=== PATIENT | female | born 1940 | race Caucasian/White ===

== ENCOUNTER 2024-01-22 19:22 | Emergency (ER) | payer MEDICARE, OTHER, SELFPAY ==
[2024-01-22 19:24] VITALS: BP 165/82
--- NOTE | 2024-01-22 20:40 | ED.GENMED ---
History of Present Illness
General
Chief Complaint: Back Pain
Source: patient
Time Seen by Provider: 01/22/24 20:27
Travel History
Have you had any contact with someone who has COVID-19?: No
Do you have any symptoms of coronavirus? Fever > 100 degrees, chills, cough, shortness of breath, sore throat, loss of taste or smell, muscle aches, or headache?: No
History of Present Illness
History of Present Illness:
83-year-old female presents to the emerged complaint low back pain. Patient states she has had chronic back issues for years. She is required lumbar fusion. She has been going to physical therapy. She began having creased pain after physical
therapy just before Colt's Day. Following point 's Day she went to a feeling and was standing for a long time. Over the following couple days the back pain has increased in intensity. Located in her low back and sacral area
and radiates down to her hips. No numbness or tingling. No bowel or bladder dysfunction. No fever or chills.
Past History
Past History
ED Past Medical History: Asthma, CVA, HTN, NIDDM (Diet controlled), Hypothyroidism and Other (Colitis, diverticulitis, colon polyp); Negative IDDM
ED Past Surgical History: Appendectomy and Gynecological
Social History
Tobacco: Non-smoker
Alcohol: None
Drug: None
Personal:
Living: with family
Employment: Retired
Family History
Family History: Hypertension
Phy Exam
Physical Exam
Physical Exam:
General: Awake, Alert, Oriented X3. No acute distress.
Vitals: Vital hypertension
Head: Atraumatic
Eyes: Pupils equal, EOMI
Throat: Airway intact, no exudates
Neck: Trachea midline
Lungs: Clear and equal b/l
Heart: Regular rate, no murmurs
Abd: Soft, Nontender, No pulsatile mass
Back: Mild tenderness palpation over the lumbar spine and sacroiliac region.
Neuro: No focal weakness
Skin: Warm, dry, no rash
Extremities: pulses equal b/l, no edema
Course
Orders/Labs/Results
Orders:
Orders
01/22/24 20:43
Ketorolac [Toradol] 15 mg IV NOW STA
Lidocaine [Lidocaine 4% Patch] 1 patch TOPICAL NOW STA
01/22/24 21:27
Basic Metabolic Panel Urgent
Complete Blood Count/With Diff Urgent
Abnormal Lab Results
01/22/24
21:27
WBC 15.6 H 10^3/uL
(4.8-10.8)
RBC 4.12 L 10^6/uL
(4.20-5.40)
MCH 32.3 H pg
(27.0-31.0)
Abs Immat Gran (auto) 0.1 H 10^3/uL
(0-0.05)
Absolute Neuts (auto) 8.4 H 10^3/uL
(1.4-6.5)
Absolute Monos (auto) 2.3 H 10^3/uL
(0.1-0.6)
Absolute Eos (auto) 1.4 H 10^3/uL
(0-0.7)
Monocytes % 14.7 H %
(1.7-9.3)
Eosinophils % 8.9 H %
(0-6)
Sodium 133 L mmol/L
(135-145)
Glucose 115 H mg/dl
(70-99)
01/22/24 21:27
01/22/24 21:27
Vital Signs
Initial and Last Documented VS:
Initial Vital Signs
Temp Pulse Resp BP Pulse Ox
98.4 F 61 18 165/82 96
01/22/24 19:24 01/22/24 19:24 01/22/24 19:24 01/22/24 19:24 01/22/24 19:24
Last Documented Vital Signs
Temp Pulse Resp BP Pulse Ox
98.4 F 61 18 165/82 96
01/22/24 19:24 01/22/24 19:24 01/22/24 19:24 01/22/24 19:24 01/22/24 19:24
MDM/Problems Addressed
Differential Diagnosis Includes:
Exacerbation of chronic back pain, spasm,
MDM/Problems Addressed:
Physical exam consistent with low back pain. Will count mildly elevated but labs are otherwise unremarkable. Suspect this is related to pain. No urinary symptoms. Patient feels better after lidocaine patch and Toradol. Stable for discharge home.
Chronic conditions affecting care: HTN and Other (Chronic back pain)
*Pulse Oximetry
Patient hypoxic: no
*Critical Care Note
Total Time (30-74mins, 75-104mins- exclusive of procedures): Not Applicable
ED Attending Note
-
Portions of this chart may have been created with voice recognition software.� Occasional wrong word or��sound alike� substitutions may have occurred due to the inherent limitations of voice recognition software.
Discharge Plan
Departure
Patient Disposition: Home (Routine Discharge)
Date of Disposition: 01/22/24
Time of Disposition: 22:24
Patient with high blood pressure during this ER visit?: Yes
Condition: Good
Discharge Problem:
Low back pain
Instructions: Low Back Pain (DC), BLOOD PRESSURE
Prescriptions:
New
prednisone 20 mg tablet
40 mg PO DAILY Qty: 10 0RF
No Action
albuterol sulfate [ProAir HFA] 8.5 GM HFA aerosol inhaler
8.5 gm IH PRN PRN (Reason: asthma)
Patient Comments:
pt seems unsure of her meds
Advair 250 mcg/50 mcg
1 dose inhalation BID
levothyroxine 100 MCG tablet
100 mcg PO DAILY
lorazepam 1 MG tablet
1 mg PO TID
fluticasone propionate 1 SPRAY spray,suspension
1 spray intranasal DAILY
Vitamin D
1 tab PO DAILY
losartan 25 mg Tablet
25 mg PO DAILY
famotidine 20 mg Tablet
20 mg PO DAILY
omeprazole 20 mg Capsule,Delayed Release(Dr/Ec)
20 mg PO DAILY
metoprolol succinate [Toprol XL] 25 mg tablet extended release 24 hr
25 mg PO DAILY Qty: 30 3RF
methylprednisolone [Medrol (Yaniv)] 4 mg tablets,dose pack
4 mg PO DAILY Qty: 21 0RF
Rx Instructions:
take as directed
Referrals:
Amari Cowan MD [Active] -
Onel Collier MD [Family Provider] -
Activity Restrictions/Additional Instructions:
Call Dr. Cowan's office to make an appointment. They are spray painter. I have sent a prescription for prednisone which she can take 2 pills a day for the next 5 days. This should help with your back pain. The patch we gave you
is a lidocaine patch which you can get [id number] at the pharmacy. 1 brand name is Salonpas. There may be store brands as well.
Interventions
Interventions:
*Risk Screen - Suicide Last Done: 01/22/24 19:24
*General Assessment Last Done: 01/22/24 19:24
*Neglect/Abuse Screening Last Done: 01/22/24 19:24
ED- Fall Risk Assessment Last Done: 01/22/24 20:40
*ED COVID-19 Vaccine History Last Done: 01/22/24 19:29
ED-Musculoskeletal Assessment Last Done: 01/22/24 20:40
Discharge Date and Time
Print Language: LATVIAN
[2024-01-22] MEDS: LIDOCAINE 4% PATCH 1 PATCH TOPICAL (21:29)
[2024-01-22] MEDS: TORADOL 15 MG IV (21:30)
[2024-01-22 21:39] LABS: % Basophils 0.4 % (0-2); % Eosinophils 8.9 % (0-6); % Immature Granulocytes 0.4 % (0-0.5); % Monocytes 14.7 % (1.7-9.3); % Neutrophils 53.6 % (42.2-75.2); Absolute Basophils 0.1 10^3/uL (0-0.2); Absolute Eosinophils 1.4 10^3/uL (0-0.7); Absolute Immature Granulocytes 0.1 10^3/uL (0-0.05); Absolute Lymphocytes 3.4 10^3/uL (1.2-3.4); Absolute Monocytes 2.3 10^3/uL (0.1-0.6); Absolute Neutrophils 8.4 10^3/uL (1.4-6.5); Hematocrit 38.2 % (37.0-47.0); Hemoglobin 13.3 g/dL (12.0-16.0); Mean Corp Hgb Conc. 34.8 g/dL (33.0-37.0); Mean Corpuscular Hgb 32.3 pg (27.0-31.0); Mean Corpuscular Volume 92.7 fL (81.0-99.0); Mean Platelet Volume 9.1 fL (7.4-10.4); Nucleated Red Blood Cells % 0 %; Platelet Count 214 10^3/uL (130-400); Red Blood Cell Count 4.12 10^6/uL (4.20-5.40); Red Cell Dist. Width 12.6 % (11.5-14.5); White Blood Cell Count 15.6 10^3/uL (4.8-10.8)
[2024-01-22 21:57] LABS: Blood Urea Nitrogen 16 mg/dl (7-17); Calcium 9.4 mg/dl (8.4-10.2); Carbon Dioxide 28 mmol/L (22-30); Chloride 98 mmol/L (98-107); Glucose 115 mg/dl (70-99); Sodium 133 mmol/L (135-145); eGFR > 60.00
== END 2024-01-22 22:45 | disposition home or self-care (01) ==
LOC: EMR 19:22
PROVIDERS: EMERGENCY PHYSICIAN Emergency Medicine; FAMILY PHYSICIAN Internal Medicine Geriatric Medicine
DX: M54.50 Low back pain, unspecified (principal); J45.909 Unspecified asthma, uncomplicated; I10 Essential (primary) hypertension; E11.9 Type 2 diabetes mellitus without complications; E03.9 Hypothyroidism, unspecified; G89.29 Other chronic pain; Z82.49 Family history of ischemic heart disease and other diseases of the circulatory system; Z86.73 Personal history of transient ischemic attack (TIA), and cerebral infarction without residual deficits; Z87.19 Personal history of other diseases of the digestive system; Z90.49 Acquired absence of other specified parts of digestive tract
CPT/HCPCS: 99283; 96374; 80048; 85025

== ENCOUNTER 2024-01-30 18:27 | Emergency (ER) | payer MEDICARE, OTHER, SELFPAY ==
[2024-01-30 18:35] VITALS: BP 133/74
[2024-01-30 19:18] VITALS: BP 130/59
--- NOTE | 2024-01-30 19:47 | ED.GENMED ---
History of Present Illness
General
Chief Complaint: Back Pain
Source: patient
Exam Limitations: none
Time Seen by Provider: 01/30/24 19:32
Travel History
Have you had any contact with someone who has COVID-19?: No
Do you have any symptoms of coronavirus? Fever > 100 degrees, chills, cough, shortness of breath, sore throat, loss of taste or smell, muscle aches, or headache?: No
History of Present Illness
History of Present Illness:
This is a 83 year old female that comes in with c/o low back pain. States that she was here Saturday a week ago with the same pain. States that she was told to take Prednisone 40mg daily for 5 days and Salonpas pain patch and nothing is helping.
States that last week she was doing PT and she feels like she pulled a muscle. States that she was told to see pain management but she couldn't get an appointment until March 05. States that she takes Gabapentin and aleve and nothing is helping.
States that she sometimes gets nauseated with the pain and is occasionally dizzy. Denies any fever, chills, chest pain, SOB, abd pain, vomiting, diarrhea, headache, urinary burning.
Past History
Past History
ED Past Medical History: Asthma, CVA (Right eye involement), HTN, NIDDM (Diet controlled), Hypothyroidism, Psychiatric (Anxiety) and Other (Colitis, diverticulitis, colon polyp, back pain, PNA, C-diff); Negative IDDM
ED Past Surgical History: Appendectomy, Cholecystectomy, Gynecological (Hysterectomy, Oophorectomy, Tubal), Orthopedic (Back fusion, ) and Tonsilectomy
Social History
Tobacco: Non-smoker
Alcohol: None
Drug: None
Personal:
Living: with family
Employment: Retired
Family History
Family History: Hypertension
Review of Systems
Review of Systems
All Other Systems: ROS reviewed and negative except as documented in HPI and ROS
Constitutional: Reports no symptoms; Denies fever or chills
EENT: Reports no symptoms
Respiratory: Reports no symptoms; Denies cough or trouble breathing
Cardiac: Reports no symptoms; Denies chest pain
ABD/GI: Reports nausea; Denies abdominal pain, vomiting or diarrhea
: Reports no symptoms; Denies dysuria, frequency or urgency
Musculoskeletal: Reports back pain (Low back pain)
Skin: Reports no symptoms
Neurological: Reports dizzy (occasional); Denies headache
Psychiatric: Reports no symptoms
Phy Exam
General Physical Exam
General Presentation: no apparent distress
General age: appears stated age
General Skin: warm and dry
General Habitus: elderly
General Mental: alert
General Hydration: dry mucous membranes
ENT Exam
ENT Exam: TM's normal, pharynx normal and neck supple
Eye Exam
Eye Exam: EOMI
Cardiovascular Exam
Cardiovascular Exam: regular rate/rhythm, no edema and normal peripheral pulses
Pulmonary Exam
Pulmonary Exam: lungs clear, no respiratory distress, no rales, chest non tender, no crackles, no rhonchi, no wheezing and no cough
Gastrointestinal Exam
Gastrointestinal Exam: normal bowel sounds, non tender, soft, no organomegaly, no pulsatile mass and non distended
Musculoskeletal Exam
Musculoskeletal Exam: full ROM, no edema and other (Negative for pain with straight leg raise. Discomfort when going up on her toes and turning sided to side. Standing she has pain in the left leg,. Able to bend forward 35 degree's)
Skin Exam
Skin Exam: normal color, warm/dry, no rash and no petechia
Psychiatric Exam
Psychiatric Exam: normal mood/affect
Course
Orders/Labs/Results
Orders:
Orders
01/30/24 19:46
CT Lumbar Spine W/o Iv Contras Urgent
Comment:
Reason For Exam: Low back pain
Acetaminophen [Tylenol] 1,000 mg PO NOW STA
Oxycodone [Roxicodone] 5 mg PO NOW STA
01/30/24 20:11
Complete Blood Count/With Diff Urgent
Comprehensive Metabolic Panel Urgent
Abnormal Lab Results
01/30/24
20:11
WBC 20.6 H 10^3/uL
(4.8-10.8)
MCH 32.3 H pg
(27.0-31.0)
Abs Immat Gran (auto) 0.2 H 10^3/uL
(0-0.05)
Absolute Neuts (auto) 11.6 H 10^3/uL
(1.4-6.5)
Absolute Lymphs (auto) 4.2 H 10^3/uL
(1.2-3.4)
Absolute Monos (auto) 3.2 H 10^3/uL
(0.1-0.6)
Absolute Eos (auto) 1.4 H 10^3/uL
(0-0.7)
Immature Gran % 1.0 H %
(0-0.5)
Lymphocytes % 20.3 L %
(20.5-51.1)
Monocytes % 15.4 H %
(1.7-9.3)
Eosinophils % 6.7 H %
(0-6)
Sodium 130 L mmol/L
(135-145)
BUN 26 H mg/dl
(7-17)
Glucose 176 H mg/dl
(70-99)
Total Protein 6.2 L g/dl
(6.3-8.2)
01/30/24 20:11
01/30/24 20:11
Leukocytosis, (recently on Steroids), Sodium slighlty low. Dehdyration. Glucose nonfasting. Total protein slightly low.
Vital Signs
Initial and Last Documented VS:
Initial Vital Signs
Temp Pulse Resp BP Pulse Ox
98.1 F 96 18 133/74 96
01/30/24 18:35 01/30/24 18:35 01/30/24 18:35 01/30/24 18:35 01/30/24 18:35
Last Documented Vital Signs
Temp Pulse Resp BP Pulse Ox
98.1 F 96 18 131/83 95
01/30/24 18:35 01/30/24 18:35 01/30/24 18:35 01/30/24 22:00 01/30/24 22:15
MDM/Problems Addressed
Differential Diagnosis Includes:
Degenerative change back, Arthritis,
MDM/Problems Addressed:
This is a 83 year old female that comes in with c/o low back pain. States that she was here a week ago on Saturday and is returning today with the same pain. states that she is in pain all the time. States that she took the steroids and
used the Salonpas but nothing is helping. States that she can't get into pain management until March 05.
Will check labs, and get CT of the lumbar spine. Will medicate for pain.
back into see patient. Patient states that her pain is much better. Explained that there is a fracture of L2. This is causing her pain. Will have patient follow up wtih the engineering specialist technician. Will have patient use Tylenol arthritis and Oxycodone 5mg
BID prn. Patient can use heat or ice if this makes her back feel better. Use her walker at home. Return with any concerns.
Chronic conditions affecting care:
Chronic back pain, prior surgery
Acute Exacerbation and/or Progression of Chronic Illness:
Chronic back pain
*Radiology
Radiology exam reviewed: radiology read reviewed (CT- Fracture involving the inferior endplate of L2 with approximately 10% diffuse loss of height. Minimal retropulsion of bony fragment from the posterior and inferior margin of L2, mildly extending
into the anterior spinal canal,)
*Pulse Oximetry
Patient hypoxic: no
*EKG
Interpreted by ED Provider?: NA
Rate: EKG- N/A
*Rehabilitation Worker Interpretation
Rate: Rehabilitation Worker- N/A
*Critical Care Note
Total Time (30-74mins, 75-104mins- exclusive of procedures): Not Applicable
ED Attending Note
-
Portions of this chart may have been created with voice recognition software.� Occasional wrong word or��sound alike� substitutions may have occurred due to the inherent limitations of voice recognition software.
Discharge Plan
Departure
Patient Disposition: Home (Routine Discharge)
Date of Disposition: 01/30/24
Time of Disposition: 23:08
Patient with high blood pressure during this ER visit?: Yes
Condition: Good
Covid-19: Not Applicable
Discharge Problem:
Fracture of lumbar spine
Instructions: Vertebral Compression Fracture (DC), BLOOD PRESSURE
Prescriptions:
New
oxycodone 5 mg tablet
5 mg PO Q8H PRN (Reason: Pain) Qty: 15 0RF
No Action
lorazepam 1 MG tablet
1 mg PO TID
Patient Comments:
01/30/2024: last filled 12/23/23, 90 tabs for 30 days from [facility]
fluticasone propionate 1 SPRAY spray,suspension
1 spray intranasal DAILY
cholecalciferol (vitamin D3) [Vitamin D3] 25 mcg (1,000 unit) Tablet
25 mcg PO DAILY
metoprolol succinate [Toprol XL] 25 mg tablet extended release 24 hr
25 mg PO DAILY Qty: 30 3RF
losartan 50 mg tablet
50 mg PO DAILY
ipratropium-albuterol 0.5 mg-3 mg(2.5 mg base)/3 mL solution for nebulization
3 ml INHALATION R Q4HPRN PRN (Reason: sob/wheezing)
ibuprofen 200 mg Capsule
200 mg PO Q6H PRN (Reason: mild pain)
guaifenesin [Robitussin] 100 mg/5 mL Liquid
200 mg PO Q4H PRN (Reason: cough)
levothyroxine 88 mcg tablet
88 mcg PO DAILY
gabapentin 300 mg capsule
300 mg PO BID
budesonide 0.5 mg/2 mL suspension for nebulization
0.5 mg inhalation R Q6HPRN PRN (Reason: sob/wheezing)
metformin 500 mg tablet extended release 24 hr
500 mg PO QPM
rosuvastatin 10 mg tablet
10 mg PO HS
duloxetine 30 mg capsule,delayed release(DR/EC)
30 mg PO DAILY
Referrals:
Gavin Salguero MD [Active] - Call in 1-3 days for appt
Onel Collier MD [Family Provider] -
Activity Restrictions/Additional Instructions:
As discussed, your blood work shows that your WBC are elevated. This is most likely due to the steroids that you have been taking. Your Sodium is slightly low. Please limit your water intake to 6-8oz glasses daily. Try eating some canned soup or
boxed food that is higher in sodium. Your CT shows that you have a fracture of L2. This is the cause of your back pain. You can use Tylenol arthritis as directed on the label and a prescription for a Narcotic pain medication has been sent to your
pharmacy. This will make you tired. Please use your walker at all times. Follow up with the family doctor and the display specialist. IF YOU HAVE INCREASED OR CHANGING PAIN, OR YOU HAVE ANY OTHER CONCERNS PLEASE RETURN TO THE EMERGENCY ROOM.
Interventions
Interventions:
*Risk Screen - Suicide Last Done: 01/30/24 18:35
*General Assessment Last Done: 01/30/24 18:35
*Neglect/Abuse Screening Last Done: 01/30/24 18:35
ED- Fall Risk Assessment Last Done: 01/30/24 19:45
*ED COVID-19 Vaccine History Last Done: 01/30/24 18:35
ED-Musculoskeletal Assessment Last Done: 01/30/24 19:45
Discharge Date and Time
Print Language: CONGOLESE
[2024-01-30 20:00] VITALS: BP 123/71
[2024-01-30] MEDS: TYLENOL 1000 MG PO (20:00)
[2024-01-30] MEDS: ROXICODONE 5 MG PO (20:00)
[2024-01-30 20:17] LABS: % Basophils 0.2 % (0-2); % Eosinophils 6.7 % (0-6); % Lymphocytes 20.3 % (20.5-51.1); % Monocytes 15.4 % (1.7-9.3); % Neutrophils 56.4 % (42.2-75.2); Absolute Basophils 0.1 10^3/uL (0-0.2); Absolute Eosinophils 1.4 10^3/uL (0-0.7); Absolute Immature Granulocytes 0.2 10^3/uL (0-0.05); Absolute Lymphocytes 4.2 10^3/uL (1.2-3.4); Absolute Monocytes 3.2 10^3/uL (0.1-0.6); Absolute Neutrophils 11.6 10^3/uL (1.4-6.5); Hematocrit 42.4 % (37.0-47.0); Hemoglobin 14.7 g/dL (12.0-16.0); Mean Corp Hgb Conc. 34.7 g/dL (33.0-37.0); Mean Corpuscular Hgb 32.3 pg (27.0-31.0); Mean Corpuscular Volume 93.2 fL (81.0-99.0); Nucleated Red Blood Cells % 0 %; Platelet Count 279 10^3/uL (130-400); Red Blood Cell Count 4.55 10^6/uL (4.20-5.40); Red Cell Dist. Width 12.6 % (11.5-14.5); White Blood Cell Count 20.6 10^3/uL (4.8-10.8)
[2024-01-30 20:41] LABS: ALT (SGPT) 12 U/L (0-35); AST (SGOT) 25 U/L (14-36); Albumin 3.5 g/dl (3.5-5.0); Alkaline Phosphatase 79 U/L (38-126); Blood Urea Nitrogen 26 mg/dl (7-17); Calcium 9.1 mg/dl (8.4-10.2); Carbon Dioxide 27 mmol/L (22-30); Chloride 99 mmol/L (98-107); Glucose 176 mg/dl (70-99); Potassium 4.8 mmol/L (3.5-5.1); Sodium 130 mmol/L (135-145); Total Bilirubin 0.4 mg/dl (0.2-1.3); Total Protein 6.2 g/dl (6.3-8.2); eGFR > 60.00
[2024-01-30 21:02] VITALS: BP 139/70
[2024-01-30 22:00] VITALS: BP 131/83
[2024-01-30 23:00] VITALS: BP 142/72
== END 2024-01-30 23:20 | disposition home or self-care (01) ==
LOC: EMR 18:27
PROVIDERS: Clinical Nurse Specialist Family Health; EMERGENCY PHYSICIAN Emergency Medicine; FAMILY PHYSICIAN Internal Medicine Geriatric Medicine
DX: S32.029A Unspecified fracture of second lumbar vertebra, initial encounter for closed fracture (principal); X58.XXXA Exposure to other specified factors, initial encounter; I10 Essential (primary) hypertension
CPT/HCPCS: 99284; 72131; 80053; 85025

== ENCOUNTER → 2024-02-19 15:02 | Outpatient (REF) | payer MEDICARE, OTHER, SELFPAY | LOC: MRI 3T 15:02 | PROVIDERS: ATTENDING PHYSICIAN Student in an Organized Health Care Education/Training Program; FAMILY PHYSICIAN Internal Medicine Geriatric Medicine | DX: S32.020A Wedge compression fracture of second lumbar vertebra, initial encounter for closed fracture (principal); M54.16 Radiculopathy, lumbar region | CPT/HCPCS: 72148 ==

== ENCOUNTER → 2024-03-20 08:56 | Outpatient (REF) | payer MEDICARE, OTHER, SELFPAY | LOC: RAD 08:56 | PROVIDERS: ATTENDING PHYSICIAN Internal Medicine Geriatric Medicine | DX: E11.40 Type 2 diabetes mellitus with diabetic neuropathy, unspecified (principal); E03.9 Hypothyroidism, unspecified; I10 Essential (primary) hypertension; E78.2 Mixed hyperlipidemia; J42 Unspecified chronic bronchitis; J44.9 Chronic obstructive pulmonary disease, unspecified; F41.9 Anxiety disorder, unspecified; E55.9 Vitamin D deficiency, unspecified; G44.209 Tension-type headache, unspecified, not intractable; R00.2 Palpitations; Z91.81 History of falling; Z13.89 Encounter for screening for other disorder; M47.817 Spondylosis without myelopathy or radiculopathy, lumbosacral region; S32.020A Wedge compression fracture of second lumbar vertebra, initial encounter for closed fracture | CPT/HCPCS: 77080 ==

== ENCOUNTER 2024-03-31 17:10 | Emergency (ER) | payer MEDICARE, OTHER, SELFPAY ==
[2024-03-31 17:25] VITALS: BP 162/98
--- NOTE | 2024-03-31 22:20 | ED.GENMED ---
History of Present Illness
<BOB Castillo - Last Filed: 04/01/24 01:43>
General
Chief Complaint: Musculo-Skeletal Complaint
Source: patient, records and spouse
Time Seen by Provider: 03/31/24 22:03
Travel History
Have you had any contact with someone who has COVID-19?: No
Do you have any symptoms of coronavirus? Fever > 100 degrees, chills, cough, shortness of breath, sore throat, loss of taste or smell, muscle aches, or headache?: No
History of Present Illness
History of Present Illness:
83 year old female with hx of chronic lower back pain, HLD, s/p spinal fusion who presents with mid-lower back pain that worsened in the last 24 hours. Pt has hx of chronic lower back pain and is on oxycodone 5 mg PRN. She was seen here on 01/30/24
for similar symptoms. At the time, CT lumbar spine showed fracture of L2. She has had intermittent lower back pain since then, which is normally controlled with oxycodone 5 mg. However, in the last 24 hours she has had worsening sharp lower back
pain, 10/10, nonradiating. States she is unable to sleep which is why she came to the ER. She also complains of 10/10, sharp, nonradiating L hip pain that worsened in the last 24 hours. She is normally ambulatory with a walker. She has associated
nausea. She reports 1 episode of diarrhea last night. Denies fevers/chills, vomiting, constipation, dysuria, urinary incontinence, numbness or tingling to extremities. Denies any falls or trauma to the back. Last dose of oxycodone 5 mg was at 1300
today with minimal relief of her pain. She follows with [facility] and has an appointment on 04/09/24 for epidural injection.
<Abraham Olsen DO - Last Filed: 04/01/24 01:20>
General
Nursing documentation reviewed up to this point in time: agreed with
Past History
<BOB Castillo - Last Filed: 04/01/24 01:43>
Past History
ED Past Medical History: Asthma, CVA (Right eye involement), HTN, NIDDM (Diet controlled), Hypothyroidism, Psychiatric (Anxiety) and Other (Colitis, diverticulitis, colon polyp, back pain, PNA, C-diff); Negative IDDM
ED Past Surgical History: Appendectomy, Cholecystectomy, Gynecological (Hysterectomy, Oophorectomy, Tubal), Orthopedic (Back fusion, ) and Tonsilectomy
Social History
Tobacco: Non-smoker
Alcohol: None
Drug: None
Personal:
Living: with family
Employment: Retired
Family History
Family History: Hypertension
Review of Systems
<BOB Castillo - Last Filed: 04/01/24 01:43>
Review of Systems
Allergies reviewed?: Yes
All Other Systems: ROS reviewed and negative except as documented in HPI and ROS
Constitutional: Reports no symptoms
EENT: Reports no symptoms
Respiratory: Reports no symptoms
Cardiac: Reports no symptoms
ABD/GI: Reports nausea
: Reports no symptoms
Musculoskeletal: Reports joint pain, muscle pain and back pain
Skin: Reports no symptoms
Neurological: Reports no symptoms
Endocrine: Reports no symptoms
Hematologic/Lymphatic: Reports no symptoms
Psychiatric: Reports no symptoms
Phy Exam
<BOB Castillo Last Filed: 04/01/24 01:43>
General Physical Exam
General Presentation: other (pt in moderate distress due to pain, she is lying in bed in position)
General age: appears stated age
General Skin: warm and dry
General Habitus: normal and elderly
General Mental: alert
General Hydration: appears well hydrated
Cardiovascular Exam
Cardiovascular Exam: regular rate/rhythm, no edema, no gallop, no murmur and normal peripheral pulses
Pulmonary Exam
Pulmonary Exam: lungs clear, no respiratory distress, no rales, no crackles, no rhonchi, no wheezing and no cough
Neurological Exam
Neurological Exam: alert, oriented x3, no motor deficits and no sensory deficits
Musculoskeletal Exam
Musculoskeletal Exam: back pain and back tenderness (midline, L2)
Skin Exam
Skin Exam: normal color and warm/dry
Psychiatric Exam
Psychiatric Exam: normal mood/affect
Course
<BOB Castillo - Last Filed: 04/01/24 01:43>
Orders/Labs/Results
Orders:
Orders
03/31/24 17:30
Hip, Left 2-3 Views [CR Hip - LT w/wo Pel 2-3 Vw*] Urgent
Comment:
Reason For Exam: pain, denies trauma
Include a pelvis x-ray?: Yes
Lumbar Spine Complete, 4 View [CR Lumbar Spine Comp Min 4 Vw*] Urgent
Comment:
Reason For Exam: lower back pain, no trauma.
03/31/24 22:55
Tranexamic Acid 1,000 mg INH NOW STA
03/31/24 23:12
HYDROmorphone [Dilaudid] 0.5 mg IM NOW STA
Vital Signs
Initial and Last Documented VS:
Initial Vital Signs
Temp Pulse Resp BP Pulse Ox
98.2 F 100 18 162/98 96
03/31/24 17:25 03/31/24 17:25 03/31/24 17:25 03/31/24 17:25 03/31/24 17:25
Last Documented Vital Signs
Temp Pulse Resp BP Pulse Ox
98.2 F 84 16 149/79 97
03/31/24 17:25 04/01/24 00:30 04/01/24 00:30 04/01/24 00:30 04/01/24 00:30
<Abraham Olsen DO - Last Filed: 04/01/24 01:20>
Orders/Labs/Results
Orders:
Orders
03/31/24 17:30
Hip, Left 2-3 Views [CR Hip - LT w/wo Pel 2-3 Vw*] Urgent
Comment:
Reason For Exam: pain, denies trauma
Include a pelvis x-ray?: Yes
Lumbar Spine Complete, 4 View [CR Lumbar Spine Comp Min 4 Vw*] Urgent
Comment:
Reason For Exam: lower back pain, no trauma.
03/31/24 22:55
Tranexamic Acid 1,000 mg INH NOW STA
03/31/24 23:12
HYDROmorphone [Dilaudid] 0.5 mg IM NOW STA
Vital Signs
Initial and Last Documented VS:
Initial Vital Signs
Temp Pulse Resp BP Pulse Ox
98.2 F 100 18 162/98 96
03/31/24 17:25 03/31/24 17:25 03/31/24 17:25 03/31/24 17:25 03/31/24 17:25
Last Documented Vital Signs
Temp Pulse Resp BP Pulse Ox
98.2 F 84 16 149/79 97
03/31/24 17:25 04/01/24 00:30 04/01/24 00:30 04/01/24 00:30 04/01/24 00:30
<BOB Castillo - Last Filed: 04/01/24 01:43>
MDM/Problems Addressed
Differential Diagnosis Includes:
compression fracture, osteoarthritis, sciatica
MDM/Problems Addressed:
83 year old female who presents with lower back pain that worsened in the last 24 hours.
Chronic conditions affecting care: HTN, Asthma, Previous abdomnial surgery and Other (spinal fusion)
<BOB Castillo - Last Filed: 04/01/24 01:43>
*Critical Care Note
Total Time (30-74mins, 75-104mins- exclusive of procedures): Not Applicable
<BOB Castillo - Last Filed: 04/01/24 01:43>
Update Note
Update Note:
03/31/24 2328: Pt reevaluated. Pt lying in position with icepack behind her neck. Pt just received dose of dilaudid. States she is still in pain.
04/01/24 0052: Pt sleeping in bed. States her pain has improved.
ED Attending Note
<BOB Castillo - Last Filed: 04/01/24 01:43>
-
Portions of this chart may have been created with voice recognition software.� Occasional wrong word or��sound alike� substitutions may have occurred due to the inherent limitations of voice recognition software.
<Abraham Olsen DO - Last Filed: 04/01/24 01:20>
ED Attending Note
Patient seen and examined by attending physician: Yes
I performed the substantive portion of visit, reviewed & personally made and approve the management plan that is documented in note by myself or MAXI.: Yes
ED Attending Note:
This a pleasant 83-year-old female who presents with acute on chronic low back pain. Patient was seen several months ago and diagnosed with a fracture in her back. She has been in rehab and following up with [facility]. She has been
taking oral pain medications but feels that they have not been working very well. She is due for an epidural injection next week. She does see pain management. Denies bowel or bladder retention or incontinence. Denies fever, chills, nausea or
vomiting.
Vital signs are stable. Patient not hypoxic
Nursing note reviewed. I agree with nursing documentation up to this point in time.
Home Meds and allergies reviewed.
NUMBER AND COMPLEXITY OF PROBLEMS ADDRESSED AT THE ENCOUNTER
� Chronic conditions affecting care: Chronic low back pain. Spinal fusion, hyperlipidemia
� Acute Exacerbation and/or Progression of Chronic Illness: Low back pain
� Differential Diagnosis includes: Worsening low back pain. New injury to back
AMOUNT AND/OR COMPLEXITY OF DATA TO BE REVIEWED AND ANALYZED
I performed an independent evaluation of the following and my interpretation is:
EKG:
CT:
X-rays:
Ultrasound:
Laboratory Studies:
Other:
Review of other/old records:
IMPRESSION:
1. ACUTE INFERIOR ENDPLATE FRACTURE of L2. Large diffuse disc bulge at L2/L3 causing moderate central canal stenosis and moderate bilateral neural foraminal narrowing.
2. 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 Moderate bilateral neural foraminal narrowing at L4/L5.
3. Severe discogenic degenerative disease at L4/L5 and L5/S1.
4. 5.9 mm grade 1 anterolisthesis of L3 on L4 and previous circumferential fusion at the L3/L4 level.
5. 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
Clinical information was obtained by an independent historian: , who is present at the bedside.
Prescriptions/Medications Considered but not given:
Further testing considered but not performed:
RISK OF COMPLICATIONS AND/OR MORBIDITY OR MORTALITY OF PATIENT MANAGEMENT
Social determinants of health affecting care: Good Social Support, good follow-up, present at the bedside
Discussion with other providers:
Escalation of care including admission/observation vs risk of discharge considered:
CRITICAL CARE NOTE:
Total Time (exclusive of procedures):
Update:
Discharge Plan
Departure
Patient Disposition: Home (Routine Discharge)
Date of Disposition: 04/01/24
Time of Disposition: 01:18
Patient with high blood pressure during this ER visit?: Yes
Discharge Problem:
Acute exacerbation of chronic low back pain
Instructions: Muscle and Bone Pain (DC), Low Back Pain ED
Prescriptions:
No Action
lorazepam 1 MG tablet
1 mg PO TID
Patient Comments:
01/30/2024: last filled 12/23/23, 90 tabs for 30 days from [facility]
fluticasone propionate 1 SPRAY spray,suspension
1 spray intranasal DAILY
cholecalciferol (vitamin D3) [Vitamin D3] 25 mcg (1,000 unit) Tablet
25 mcg PO DAILY
metoprolol succinate [Toprol XL] 25 mg tablet extended release 24 hr
25 mg PO DAILY Qty: 30 3RF
losartan 50 mg tablet
50 mg PO DAILY
ipratropium-albuterol 0.5 mg-3 mg(2.5 mg base)/3 mL solution for nebulization
3 ml INHALATION R Q4HPRN PRN (Reason: sob/wheezing)
ibuprofen 200 mg Capsule
200 mg PO Q6H PRN (Reason: mild pain)
guaifenesin [Robitussin] 100 mg/5 mL Liquid
200 mg PO Q4H PRN (Reason: cough)
levothyroxine 88 mcg tablet
88 mcg PO DAILY
gabapentin 300 mg capsule
300 mg PO BID
budesonide 0.5 mg/2 mL suspension for nebulization
0.5 mg inhalation R Q6HPRN PRN (Reason: sob/wheezing)
metformin 500 mg tablet extended release 24 hr
500 mg PO QPM
rosuvastatin 10 mg tablet
10 mg PO HS
duloxetine 30 mg capsule,delayed release(DR/EC)
30 mg PO DAILY
oxycodone 5 mg tablet
5 mg PO Q8H PRN (Reason: Pain) Qty: 15 0RF
Referrals:
Onel Collier MD [Family Provider] -
Activity Restrictions/Additional Instructions:
Please follow-up with your orthopedic doctor as previously scheduled. Continue to take your oxycodone as directed.
It was a pleasure meeting you and taking part in your care. We hope for your continued healing and wellness.
Please read discharge instructions in their entirety. However, they are for general education and may not describe your exact diagnosis at discharge. Information on your ER visit and medical conditions were discussed with you along with appropriate
follow up information...
If indicated, please take your medications as instructed and indicated on discharge paperwork.
Please schedule a follow up appointment as directed. Call to schedule an appointment
Please return to the emergency department with ANY change in, persisting, or worsening of symptoms. If any of your symptoms do not improve, or persist, or become more severe within 6-12 hours, please return to the emergency department for further
care.
Please return to the emergency department if you develop a headache, neck pain/stiffness, fever greater than 100.4F, chest pain, shortness of breath, persistent nausea, vomiting, slurred speech, difficulty walking, numbness/tingling, weakness, signs
of infection or any other symptoms that are worrisome to you.
If you have any questions or concerns please do not hesitate to call the Hospital at or E-mail me directly at [email or web address]
Interventions
Interventions:
*Nursing Disposition Last Done: 04/01/24 01:36
ED-Musculoskeletal Assessment Last Done: 04/01/24 00:05
Discharge Date and Time
Discharge Date/Time: 04/01/24 01:37
Print Language: COLOMBIAN
[2024-03-31] MEDS: DILAUDID 0.5 MG IM (23:22)
[2024-04-01 00:30] VITALS: BP 149/79
== END 2024-04-01 01:37 | disposition home or self-care (01) ==
LOC: EMR 17:10
PROVIDERS: EMERGENCY PHYSICIAN Student in an Organized Health Care Education/Training Program; FAMILY PHYSICIAN Internal Medicine Geriatric Medicine
DX: M54.50 Low back pain, unspecified (principal); G89.29 Other chronic pain; I10 Essential (primary) hypertension; E11.9 Type 2 diabetes mellitus without complications; E03.9 Hypothyroidism, unspecified
CPT/HCPCS: 99283; 96372; 72110; 73502

== ENCOUNTER → 2024-04-21 17:31 | Outpatient (REF) | payer MEDICARE, OTHER, SELFPAY | LOC: MRI 17:31 | PROVIDERS: ATTENDING PHYSICIAN Internal Medicine; FAMILY PHYSICIAN Internal Medicine Geriatric Medicine | DX: M54.59 Other low back pain (principal); M48.062 Spinal stenosis, lumbar region with neurogenic claudication; M47.817 Spondylosis without myelopathy or radiculopathy, lumbosacral region; M54.16 Radiculopathy, lumbar region; M51.36 Other intervertebral disc degeneration, lumbar region | CPT/HCPCS: 72195 ==

== ENCOUNTER → 2024-11-17 10:46 | Outpatient (REF) | payer MEDICARE, OTHER, SELFPAY | LOC: HWRAD 10:46 | PROVIDERS: ATTENDING PHYSICIAN Specialist; FAMILY PHYSICIAN Internal Medicine Geriatric Medicine | DX: G91.2 (Idiopathic) normal pressure hydrocephalus (principal) | CPT/HCPCS: 70450 ==

== ENCOUNTER 2025-08-07 14:40 | Inpatient (IN) | payer MEDICARE, OTHER, SELFPAY ==
[2025-08-05 23:27] VITALS: BMI 25.8
[2025-08-05 23:49] LABS: Hematocrit 40.5 % (37.0-47.0); Hemoglobin 13.9 g/dL (12.0-16.0); Mean Corp Hgb Conc. 34.3 g/dL (33.0-37.0); Mean Corpuscular Volume 96.0 fL (81.0-99.0); Nucleated Red Blood Cells % 0 %; Platelet Count 206 10^3/uL (130-400); Red Cell Dist. Width 14.1 % (11.5-14.5)
[2025-08-06] VITALS (10 sets, daily range): BP systolic 107–173; BP diastolic 69–99; PULSE 78–79; O2SAT 96–97; BMI 23.8
[2025-08-06 00:04] LABS: ALT (SGPT) 12 U/L (0-35); AST (SGOT) 20 U/L (14-36); Albumin 4.0 g/dl (3.5-5.0); Alkaline Phosphatase 62 U/L (38-126); Blood Urea Nitrogen 13 mg/dl (7-17); Calcium 9.3 mg/dl (8.4-10.2); Carbon Dioxide 30 mmol/L (22-30); Chloride 102 mmol/L (98-107); Estimated Creatinine Clearance 34 ml/min; Glucose 145 mg/dl (70-99); Potassium 4.4 mmol/L (3.5-5.1); Sodium 137 mmol/L (135-145); Total Protein 7.0 g/dl (6.3-8.2); eGFR > 60.00
[2025-08-06 00:05] LABS: INR 1.01; PT 13.8 Sec (11.4-14.6)
[2025-08-06 00:06] LABS: APTT 33.7 Sec (23.4-35.0)
--- NOTE | 2025-08-06 01:00 | ED.CVA ---
History of Present Illness
General
Chief Complaint: CVA/TIA Symptoms
Source: patient
Exam Limitations: none
Time Seen by Provider: 08/05/25 23:19
Nursing documentation reviewed up to this point in time: agreed with
Onset of Stroke Symptoms
Onset of symptoms known: No
Time pt last seen normal is known: No
History of Present Illness
History of Present Illness:
Note:
CHIEF COMPLAINT(S)
Right-sided weakness and difficulty with speech.
HISTORY OF PRESENT ILLNESS
The patient is an 85-year-old female presenting with a right-sided deficit that was observed on arrival. She did not have a preceding history of such issues, except for a cerebrovascular accident (CVA) that occurred approximately 10 years ago. The
patients current symptoms include weakness on her right side and expressive aphasia. Her previous diagnosis of CVA may be relevant as it was reported to have affected the right side, though she states she has been able to manage with the limitations
on her own and is on public support. Upon arrival, it was noted that she had a significant deficit on her right side and difficulty in communication suggesting an acute change.
MEDICATIONS
- Baclofen, current dosage unknown
- Gabapentin, current dosage unknown
PHYSICAL EXAM
General: Alert with some distress due to communication difficulties.
Neurological: Right-sided weakness observed. Expressive aphasia present.
PROBLEM LIST
Acute:
- Right-sided weakness
- Expressive aphasia
Chronic:
- History of cerebrovascular accident (CVA) 10 years ago
DIFFERENTIAL DIAGNOSIS
The Differential Diagnosis includes, in no particular order and is not limited to:
- Acute Stroke
- Transient Ischemic Attack (TIA)
- Seizure with postictal state
- Brain Tumor
- Subdural Hematoma
- Metabolic or Electrolyte Imbalance
- Migrainous Disorder
- Infection leading to neurological deficit (i.e., encephalitis)
- Medication Side Effect
- Hypoglycemia
CARE-UPDATE
08/05/25 - 23:30
Patient demonstrated difficulties naming objects and reading sentences but was able to perform physical tasks such as lifting arms and legs. Sensation appeared symmetrical with eyes closed. A CT scan and blood work are planned for further
evaluation. The EKG indicated a two-paced rhythm with normal intervals and axis. The patient has yet to receive the COVID booster, scheduled for tomorrow but currently undecided about proceeding with it.
CARE-UPDATE
08/06/25 - 01:03
CT scans are negative, and the patient is not a candidate for tPA as her symptoms have resolved. The patients neurological status has returned to 100% baseline at this time.
Disposition:
SUMMARY OF ENCOUNTER
An 85-year-old female presented to the emergency department with acute onset of expressive aphasia and right-sided weakness. These symptoms resolved before her arrival. Her National Institutes of Health Stroke Scale (NIHSS) score is zero, indicating
no ongoing neurological deficits. No tissue plasminogen activator (tPA) was administered due to the complete resolution of symptoms.
DISPOSITION
Patient to be admitted to the hospital service.
ASSESSMENT
The patients presentation is suggestive of a transient ischemic attack (TIA) versus cerebrovascular accident (CVA).
MEDICATION RECONCILIATION
The patient is on Baclofen and Gabapentin, with dosages currently unknown. No new medications were administered or prescribed during the emergency visit.
MEDICAL DECISION MAKING
-Complexity of Data Reviewed: Chronic conditions affecting care include a history of cerebrovascular accident (CVA) 10 years ago. Differential diagnosis includes acute stroke, transient ischemic attack (TIA), seizure with postictal state, brain
tumor, subdural hematoma, metabolic or electrolyte imbalance, migrainous disorder, infection leading to neurological deficit (i.e., encephalitis), medication side effect, hypoglycemia.
-Data:
Category 1
My independent interpretation of the EKG shows a two-paced rhythm with normal intervals and axis.
-Risk: Consideration of admission for further monitoring and evaluation due to the complexity and potential risk associated with her presentation and history of a prior cerebrovascular event.
DIAGNOSIS
- Transient Ischemic Attack (TIA), ICD-10: G45.9
- History of Cerebrovascular Accident (CVA), ICD-10: I69.959
Past History
Past History
ED Past Medical History: Asthma, CVA (Right eye involement), HTN, NIDDM (Diet controlled), Hypothyroidism, Psychiatric (Anxiety) and Other (Colitis, diverticulitis, colon polyp, back pain, PNA, C-diff); Negative IDDM
ED Past Surgical History: Appendectomy, Cholecystectomy, Gynecological (Hysterectomy, Oophorectomy, Tubal), Orthopedic (Back fusion, ) and Tonsilectomy
Social History
Tobacco: Non-smoker
Alcohol: None
Drug: None
Personal:
Living: with family
Employment: Retired
Family History
Family History: Hypertension
Review of Systems
Review of Systems
Allergies reviewed?: Yes
All Other Systems: ROS reviewed and negative except as documented in HPI and ROS
Phy Exam
Physical Exam
Physical Exam:
.
Scores
NIH Stroke Score
Level of Consciousness: 0 - Alert
LOC Questions: 0-Answers both correctly
LOC Commands: 0-Performs both correctly
Best Horizontal Gaze: 0-Normal
Visual Schaffer: 0=Normal, no visual loss
Facial Palsy: 0=Normal, symmetrical
Motor - Right Arm: 0=No drift 10 seconds
Motor - Left Arm: 0=No drift 10 seconds
Motor - Right Le-No drift 5 seconds
Motor - Left Le-No drift 5 seconds
Limb Ataxia: 0-Absent
Sensation: 0-Normal
Best Language: 0-No aphasia
Dysarthria: 0-Normal
Extinction and Inattention: 0-No abnormality
NIH Total Score:: 0
Thrombolytic Contraindication
Inclusion and Exclusion criteria reviewed: Yes
Course
Orders/Labs/Results
Orders:
Orders
08/05/25 23:17
EKG [Electrocardiogram (*1)] Urgent
Reason for Study: TIA/Stroke
08/05/25 23:18
EKG- Treatment ONCE
08/05/25 23:23
CT BRAIN PERF STROKE ALERT Urgent
Comment:
Reason For Exam: expressive aphasia, weakness
CT HEAD STROKE ALERT W/o Cont Urgent
Comment:
Reason For Exam: expressive aphasia, weakness
CT HEAD/NECK ANG STROKE ALERT Urgent
Comment:
Reason For Exam: expressive aphasia, weakness
08/05/25 23:24
Bedside Glucose- Treatment ONCE
Cardiac Monitoring- Treatment ONCE
Pulse Ox/cont/shift [RESP] Stat
Quantity: 1
08/05/25 23:34
Complete Blood Count/With Diff Urgent
Comprehensive Metabolic Panel Urgent
PTT Urgent
Prothrombin Time Urgent
08/06/25 01:50
Admit/Transfer Patient As Directed
Co-Sign Provider:
Level of Care: Observation services
Assign to:: Telemetry
Physician / Group: Ella
Diagnosis: TIA/CVA
Reason for Telemetry: CVA/TIA
Date to Stop Telemetry: 08/09/25
Time to Stop Telemetry: 11:00
Code Status As Directed
Resuscitation Status: Limited DNR
Limited DNR: -No intubation
08/06/25 01:51
PRN Pain Medication Management As Directed
May give lesser potent ordered pain med per pt: Yes
preference::
Protocol:: Medication orders for pain may be administered in a
manner that supports deferring to patient preference
when the pt is:
- Requesting an ordered lesser potent pain medication.
Least to most potent pain medications are defined
as: acetaminophen < NSAID < tramadol < opioids
(morphine, oxycodone, hydromorphone).
- Requesting a lesser dose of the same medication IF
ORDERED.
- Requesting a less intrusive route of administration
if both routes are prescribed by the provider (PO <
IV).
08/06/25 01:55
Lorazepam [Ativan] 0.5 mg PO NOW STA
08/06/25 02:52
Acetaminophen [Tylenol/Feverall] 650 mg RECTAL Q4HPRN PRN
Acetaminophen [Tylenol] 650 mg PO Q4HPRN PRN
Budesonide [Pulmicort] 0.5 mg INH R Q6HPRN PRN sob/wheezing
Dextrose 50%-Water [Dextrose 50% Syringe] 12.5 grams IV [id number] PRN
Glucagon [GlucaGen] 1 mg IM PRN PRN
Lorazepam [Ativan] 0.5 mg PO TID PRN anxiety anxiety
08/06/25 02:52
Case Management Consult ONCE
Case Management Consult: Discharge Planning
Comment: stroke/tia
Consult Notification Routine
Specialty to Notify: Neurology
Date consulting provider notified: 08/06/25
Time consulting provider notified: 07:29
Notified:: Provider
Comment: TT
DIETARY IP CONSULT Routine
Reason for Consult: stroke/TIA
NEUROLOGY CONSULT Routine
Consulting Provider: Mario Dye
Was physician already notified: No
Reason for consult: TIA
Surveillance Dual Rate Officer Urgent
Activity As Directed
Activity Level: With Assistance
Bedside Glucose Monitoring As Directed
Frequency: AC&HS
Additional Instructions:: Change to q6h if pt on TPN, tube feeding or not eating
NIH Stroke Scale As Directed
Directions: Per protocol
Comment: every shift and with any change in condition or mental status
Neurological Checks As Directed
Frequency: q4h
Additional Instructions:: q4h x 24h upon admission to the floor, then qshift & with any change in condition
and mental status
Patient Education As Directed
Type: Stroke education packet
Comment: provide to patient and family
Pneumatic Compression Sleeves As Directed
Type: Knee high
Swallow Screening CVA/TIA ONLY As Directed
Comment: NPO until swallowing screening completed
If patient FAILS swallow screening:: NPO, Speech Therapy consult, Aspiration Precautions
If patient PASSES swallow screening, diet:: 1800 asia/ 15 CHO Diabetic
Above diet order entered?: Yes- passed screening
Vital Signs As Directed
Frequency: Per unit guidelines
Ot Eval And Treat Routine
Pt Eval And Treat Routine
Activity Level: As Tolerated
Speech Therapy Eval & Treat Routine
DX Deep Vein Thrombosis Video Routine
08/06/25 03:00
Flush (0.9% Sodium Chloride) [Flush (Nss)] See Dose Instructions IV PER PROTOCOL
08/06/25 03:43
Pt Screening Request from [facility] Routine
08/06/25 05:58
Basic Metabolic Panel IN AM
C-Reactive Protein Routine
Comment: ADD
Cardiovascular Evaluation IN AM
Complete Blood Count/No Diff IN AM
Erythrocyte Sed Rate Routine
Comment: ADD
Ferritin Routine
Comment: ADD
Folate Routine
Comment: ADD
Free T4 Routine
Comment: ADD ON
Glycohemoglobin (HgbA1c) IN AM
TSH Routine
Comment: ADD ON
Vitamin B12 Routine
Comment: ADD
08/06/25 Breakfast
1800 calorie (15 carb) Diabetic
At Your Request: Limited Participation
Comment: 15 CHO DIABETIC
Levothyroxine [Synthroid] 88 mcg PO DAILY @ 0600
08/06/25 07:01
MRSA Screen Routine
JESSICA Source: Nose
Specimen Description:
08/06/25 07:30
Insulin Aspart Corrective Low [Novolog Flexpen-Low Resistance] See Protocol SC AC
08/06/25 07:39
Add On- LAB Routine
Tests Added?: TSH
08/06/25 07:40
CR Chest - 2 Views Urgent
Comment:
Reason For Exam: leukocytosis
08/06/25 08:00
Aspirin Chewable [Low Strength Aspirin] 81 mg PO DAILY
Duloxetine Delayed Release [Cymbalta Delayed Release] 60 mg PO DAILY
Losartan [Cozaar] 50 mg PO DAILY
Metoprolol Xl [Toprol Xl] 25 mg PO BID
08/06/25 08:12
COVID-19 Antigen Urgent
Source: Nasal Swab
Influenza A+B Rapid Molecular Urgent
JESSICA Source: Nasal Swab
Specimen Description:
08/06/25 09:34
Lorazepam [Ativan] 1 mg PO ONCE ONE
08/06/25 10:03
Echo 2D MMode Color/Doppler Routine
Reason for Study: CVA
08/06/25 11:39
UA Reflex to Culture [Urinalysis Reflex To Culture] Urgent
Date Specimen was Collected: 08/06/25
Time Specimen was Collected: 11:34
Urine Microscopic Reflex Cult Urgent
Urine Culture Urgent
JESSICA Source: U
Specimen Description:
Date Specimen was Collected: 08/06/25
Time Specimen was Collected: 11:34
08/06/25 12:00
Clopidogrel Bisulfate [Plavix] 75 mg PO DAILY
Spine, LS, 2 or 3 View [CR Lumbar Spine 2 Or 3 Views] Urgent
Comment:
Reason For Exam: stimulator, preMRI
Spine, Thoracic 2 Views [CR Thoracic Spine 2 Views] Urgent
Comment:
Reason For Exam: stimulator, preMRI
08/06/25 13:30
Cyanocobalamin [Vitamin B-12] 1,000 mcg PO DAILY
08/06/25 14:00
Flush (0.9% Sodium Chloride) [Flush (Nss)] See Dose Instructions IV PER PROTOCOL
08/06/25 22:00
Duloxetine Delayed Release [Cymbalta Delayed Release] 60 mg PO HS
Rosuvastatin Calcium [Crestor] 10 mg PO HS
Rosuvastatin Calcium [Crestor] 20 mg PO HS
08/07/25 06:00
Levothyroxine [Synthroid] 100 mcg PO DAILY @ 0600
08/07/25 07:28
MR Brain Without Contrast Routine
Reason For Exam: stroke/TIA
Recent pill cam endoscopy?: No
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
08/07/25 12:00
CefTRIAXone [Rocephin] 1,000 mg IV Q24H
Sterile Water [Sterile Water For Injection] 10 ml IV Q24H
08/07/25 14:34
Level of Care Change As Directed
Level of Care: Inpatient admission
Reason for Hospitalization: Acute stroke
Expected length of stay greater than two midnights?: Yes
ELOS- Estimated Length of Stay in days: 2
I certify the patient meets the requirements for IP care: Yes
08/09/25 11:00
DC Protocol for Telemetry ONCE
Abnormal Lab Results
08/05/25 08/06/25 08/06/25
23:34 05:58 07:25
WBC 14.0 H 10^3/uL 15.3 H 10^3/uL
(4.8-10.8) (4.8-10.8)
MCH 32.9 H pg 33.1 H pg
(27.0-31.0) (27.0-31.0)
Absolute Neuts (auto) 7.4 H 10^3/uL
(1.4-6.5)
Absolute Lymphs (auto) 3.9 H 10^3/uL
(1.2-3.4)
Absolute Monos (auto) 1.7 H 10^3/uL
(0.1-0.6)
Absolute Eos (auto) 0.9 H 10^3/uL
(0-0.7)
Monocytes % 12.4 H %
(1.7-9.3)
Eosinophils % 6.3 H %
(0-6)
Glucose 145 H mg/dl 142 H mg/dl
(70-99) (70-99)
Hemoglobin A1c 6.9 H %
(4.0-5.6)
Triglycerides 250 H mg/dl
(10-149)
VLDL Cholesterol, Calc 50 H mg/dl
(0-30)
Vitamin B12 190 L pg/ml
(239-931)
TSH 8.07 H uIU/ml
(0.47-4.68)
Leukocyte Esterase Rfl
Urine Bacteria (Reflex)
Urine Albumin (Reflex)
POC Glucose 148 H mg/dl
()
08/06/25 08/06/25 08/06/25
11:39 13:09 16:23
WBC
MCH
Absolute Neuts (auto)
Absolute Lymphs (auto)
Absolute Monos (auto)
Absolute Eos (auto)
Monocytes %
Eosinophils %
Glucose
Hemoglobin A1c
Triglycerides
VLDL Cholesterol, Calc
Vitamin B12
TSH
Leukocyte Esterase Rfl 1+ A
(Negative)
Urine Bacteria (Reflex) Few A
(Negative)
Urine Albumin (Reflex) 1+ A
(Neg - Trace)
POC Glucose 190 H mg/dl 172 H mg/dl
(-) (70-99)
08/06/25 08/07/25 08/07/25
21:05 06:57 11:34
WBC
MCH
Absolute Neuts (auto)
Absolute Lymphs (auto)
Absolute Monos (auto)
Absolute Eos (auto)
Monocytes %
Eosinophils %
Glucose
Hemoglobin A1c
Triglycerides
VLDL Cholesterol, Calc
Vitamin B12
TSH
Leukocyte Esterase Rfl
Urine Bacteria (Reflex)
Urine Albumin (Reflex)
POC Glucose 119 H mg/dl 150 H mg/dl 164 H mg/dl
(70-99) (70-99) (70-99)
08/06/25 05:58
08/06/25 05:58
Vital Signs
Initial and Last Documented VS:
Initial Vital Signs
Temp
98.4 F
08/05/25 23:19
Last Documented Vital Signs
Temp Pulse Resp BP Pulse Ox
99.3 F 64 15 149/75 96
08/07/25 19:29 08/07/25 19:29 08/07/25 19:29 08/07/25 19:29 08/07/25 19:29
*Pulse Oximetry
SaO2: 96
Oxygen Mode of Delivery: Room air
Patient hypoxic: no
*Critical Care Note
Total Time (30-74mins, 75-104mins- exclusive of procedures): Not Applicable
ED Attending Note
-
Portions of this chart may have been created with voice recognition software.� Occasional wrong word or��sound alike� substitutions may have occurred due to the inherent limitations of voice recognition software.
Discharge Plan
Departure
Patient Disposition: Admit
Date of Disposition: 08/06/25
Time of Disposition: 01:20
Presentation/result/management discussed w/ accepting MD/DO: Hospitalist
Condition: Good
Discharge Problem:
Acute CVA (cerebrovascular accident)
Interventions
Interventions:
*Risk Screen - Suicide Last Done: 08/06/25 02:41
*General Assessment Last Done: 08/05/25 23:27
*Neglect/Abuse Screening Last Done: 08/05/25 23:27
*ED- Fall Risk Assessment Last Done: 08/05/25 23:27
*ED COVID-19 Vaccine History Last Done: 08/05/25 23:30
*ED Influenza Vaccine History Last Done: 08/05/25 23:30
*Nursing Disposition Last Done: 08/06/25 02:44
ED- Pulmonary Assessment Last Done: 08/05/25 23:32
ED- Neurological Assessment Last Done: 08/05/25 23:32
ED- Cardiac Assessment Last Done: 08/05/25 23:32
ED Swallowing Screen Last Done: 08/05/25 23:32
Discharge Date and Time
Discharge Date/Time: 08/06/25 02:45
--- NOTE | 2025-08-06 01:20 | HPS.HSE ---
Family Physician
-
Family Physician: Onel Collier
Chief Complaint
-
Aphasia
History of Present Illness
This is a 85-year-old female with past medical history significant for hypertension, hyperlipidemia, hypothyroid, asthma presenting to the emergency department complaining of slurred speech no focal independent living facility.
Patient reported that she was just finishing watching a baseball game on TV when she attempted to talk to her spouse. She had difficulty making afterwards. She was actually able to write down some words when she had his difficulty and wrote down
for her to call the ambulance she thought she was having a stroke. She continued to have difficulty and aware that the speech sounded garbled and slurred. He did not notice any facial asymmetry. She was moving all 4 extremities
normally. She had no visual complaints. She is now able to speak more clearly although the speech still appears halting compared to her baseline.
Patient reports that she has had a prior CVA few years ago with resultant defect on visual field. She was previously on aspirin but she said that she stopped taking aspirin for a while now. She did take a full dose aspirin prior to coming to the
emergency department. When EMS arrived they still found slowed and they reported that the symptoms has been ongoing for about 40 minutes. By the time she arrived in the ED spastic with symptoms have markedly improved.
In the Emergency Department patient was afebrile, she was hemodynamically stable with BP of 160/80, a pulse of 83 oxygen saturation 90% on room air. ECG shows sinus rhythm at a rate of [address] or T wave changes. CBC did show a
white count of 14 but otherwise unremarkable. Electrolyte BUN/creatinine were normal.
CT of the head and CT angio head and neck shows no acute stroke, mass or bleed, no large vessel occlusion, dissection or aneurysm.
Medical History
Past Medical History
Past Medical History: Reports Asthma, COPD, HTN, Hypercholesterolemia, NIDDM and Psychiatric (Anxiety)
Past Surgical History: Reports Appendectomy, Cholecystectomy and Gynocological (Hysterectomy)
Social History
Tobacco: Non-smoker
Alcohol: None
Drug: None
Living: With Family
Family History
Family History: Not pertinent
Allergies / Home Medications
Allergies reflects when Allergies were last updated in [employer].
Home Medications with original date entered in [employer]
Allergy/Medication List:
Allergies
Allergy/AdvReac Type Severity Reaction Status Date / Time
ciprofloxacin (From Cipro) Allergy Rash Verified 03/31/24 17:29
levofloxacin (From Levaquin) Allergy JOINT PAIN Verified 03/31/24 17:29
Home Medications
lorazepam 0.5 mg tablet 1 mg PO TID 04/20/16
metoprolol succinate 25 mg tablet,extended release 24 hr (Toprol XL) 25 mg PO DAILY #30 tabs 02/28/23
duloxetine 30 mg capsule,delayed release 30 mg PO DAILY 01/30/24
levothyroxine 88 mcg tablet 88 mcg PO DAILY 01/30/24
losartan 50 mg tablet 50 mg PO DAILY 01/30/24
metformin 500 mg tablet,extended release 24 hr 500 mg PO QPM 01/30/24
rosuvastatin 10 mg tablet 10 mg PO HS 01/30/24
Review of Systems
-
Constitutional: Reports No Symptoms
EENT: Reports No Symptoms
Respiratory: Reports No Symptoms
Cardiac: Reports No Symptoms
Abdomen/GI: Reports No Symptoms
: Reports No Symptoms
Musculoskeletal: Reports No Symptoms
Skin: Reports No Symptoms
Neurological: Reports Other (aphasia)
Endocrine: Reports No Symptoms
Hematologic/Lymphatic: Reports No Symptoms
Psych: Reports No Symptoms
Physical Exam
Vital Signs
Vital Signs
Temp Pulse Resp Pulse Ox
98.4 F 83 21 96
08/05/25 23:19 08/05/25 23:28 08/05/25 23:28 08/06/25 01:01
Physical Exam
General: Well Developed, Well Nourished and No Apparent Distress
HEENT: NormoCephalic, Moist mucous membranes and Atraumatic
Respiratory: Clear
Cardiac: S1/S2 and Regular Rhythm; No Murmur or Rub
GI: Soft, Non Tender, Non Distended and Normal Bowel Sounds; No Organomegaly
Rectal: Deferred by Provider
Musculoskeletal: No Clubbing, No Cyanosis and No Edema
Skin: No Rash
Neuro: AO x 3, Nonfocal/grossly intact, Cranial Nerves Intact and Slurred Speech; No Facial Droop or Tremors
Hematologic/Lymphatic: No Lymphadenopathy
Psych: Calm
Laboratory Results
-
08/05/25 23:34
08/05/25 23:34
Laboratory Results
PT 13.8 Sec (11.4-14.6) 08/05/25 23:34
INR 1.01 08/05/25 23:34
APTT 33.7 Sec (23.4-35.0) 08/05/25 23:34
Total Bilirubin 0.4 mg/dl (0.2-1.3) 08/05/25 23:34
AST 20 U/L (14-36) 08/05/25 23:34
ALT 12 U/L (0-35) 08/05/25 23:34
Alkaline Phosphatase 62 U/L (38-126) 08/05/25 23:34
Data Reviewed
-
CT Scan: Report Reviewed by me
Medical Tests (Nuc Med, Echo, EKG etc): Image Personally Visualized and interpreted
Lab Data: Labs Reviewed by me
Old Records: Reviewed
Impression/Plan
-
IMPRESSION:
This is a 85-year-old with past medical history significant for hypothyroid, hypertension, prior TIA/CVA, chronic pain presented to the emergency department with episode of slurred speech. Has been going on for about 2 hours and has been improving
since arrival in the emergency department. Patient now can speak understandably but has some delay finding the words & still has some halting pattern. NIHSS is 1. CT of the head, CT angio of the head and neck are negative.
PLAN:
Aphasia -improving, suspect TIA but cannot rule out a stroke.
- Admit to telemetry observation
- Status post full dose aspirin, continue with 81 mg daily
- Speech therapy
- PT consult
- Swallow eval
- Continue statin
- MRI in a.m. patient has a stimulator device implant, unclear if it is compatible with MRI, MRI team to investigate
- Neurology consult
Chronic back pain -Status post spinal stimulator
- Complete postop antibiotics tomorrow with cephalexin 500 mg twice daily
- Continue duloxetine
Type 2 diabetes -
- Hold metformin
- Insulin sliding scale
DVT prophylaxis -SCDs
CODE STATUS�partial DNR, patient does not want to be intubated but chest compressions and defibrillation okay.
[2025-08-06] MEDS: ATIVAN 0.5 MG PO ×3 (02:06→16:13)
--- NOTE | 2025-08-06 04:00 | PTCARENOTE ---
pt is aaox3, [place], and a little forgetful. pt nih=3 - pt has left sided decrease vision- states she had an old stroke that affected her eye, thinks it was that side. see work list. pt stated she took aspirin at home but couldn't remembered the mg
'stated she thinks it was 5mg'. asked pt re home meds- unable to provide all details. updated [employer] IN[employer]IGATOR Ashley Barton and kylee texted neurology. pt has bed alarm on. oriented to room w/ call travis in reach.
[2025-08-06] MEDS: SYNTHROID 88 MCG PO (05:53)
[2025-08-06 07:15] LABS: Hematocrit 42.4 % (37.0-47.0); Hemoglobin 14.5 g/dL (12.0-16.0); Mean Corp Hgb Conc. 34.2 g/dL (33.0-37.0); Mean Corpuscular Volume 96.8 fL (81.0-99.0); Platelet Count 220 10^3/uL (130-400); Red Cell Dist. Width 14.1 % (11.5-14.5)
[2025-08-06 07:27] LABS: Glucose - Point of Care 148 mg/dl (70-99)
[2025-08-06 07:43] LABS: Blood Urea Nitrogen 12 mg/dl (7-17); Calcium 9.3 mg/dl (8.4-10.2); Carbon Dioxide 29 mmol/L (22-30); Chloride 101 mmol/L (98-107); Estimated Creatinine Clearance 38 ml/min; Glucose 142 mg/dl (70-99); HDL Cholesterol 39 mg/dl; LDL Cholesterol, Calculated 102 mg/dl; Potassium 4.4 mmol/L (3.5-5.1); Sodium 137 mmol/L (135-145); Very Low Density Lipoprotein 50 mg/dl (0-30); eGFR > 60.00
[2025-08-06] MEDS: COZAAR 50 MG PO (08:24)
[2025-08-06] MEDS: LOW STRENGTH ASPIRIN 81 MG PO (08:24)
[2025-08-06] MEDS: TOPROL XL 25 MG PO ×2 (08:24→20:11)
[2025-08-06 09:00] LABS: COVID-19 Antigen Negative (Negative)
[2025-08-06] MEDS: NOVOLOG FLEXPEN-LOW RESISTANCE SC (09:07)
--- NOTE | 2025-08-06 09:14 | CON.NEURO4 ---
Addendum entered and electronically signed by Mario Dye MD 08/06/25 11:43:
Studies reviewed.
I have personally examined the patient. I reviewed and agree with the LIVE TRUCK OPERATOR's Note.
My addenda:
Awake, alert, interactive. No acute distress.
Speech with minimal fluency reduction.
Follows 2-step requests w/o difficulty. No tremor.
Extra-ocular movements grossly intact.
Facial movements full and symmetric. Hearing intact to normal conversational volume.
Normal UE movements bilaterally.
Neck: full ROM.
Chest: no dyspnea
Heart: no JVD
Ext: (-) Clubbing, (-) Cyanosis, (-) Edema
IMPRESSIONS/RECOMMENDATIONS:
Abrupt onset of aphasia, currently mild, with questionable history of branch retinal artery occlusion
Check MRI of brain when possible, this may be delayed due to her back stimulator
Initiate aspirin and clopidogrel with conversion to aspirin alone after 21 days
Agree with advancement of rosuvastatin dosing from 10 to 20 mg due to LDL greater than 70
Permissive hypertension until 2200 hrs., then normotension
Offer lorazepam prior to MRI of brain
Rehabilitation evaluations
D/W patient
All questions answered.
Will continue to follow pending results.
Original Note:
Documented by User: Kellie Howe NP 08/06/25 11:18
Consultation - Neurology 4
-
CONSULTING PHYSICIAN: Mario Dye MD
REFERRING PHYSICIAN: Hospitalists/Dr. Jaramillo
DICTATED BY: SHASHA Chavez
DATE/TIME OF REQUEST: 08/06/25
DATE/TIME OF CONSULTATION: 08/06/25
Reason for Consultation: Aphasia
History of Present Illness:
This is an 85-year-old (left/right) handed female who has presented to the hospital on 08/05/25 with report of aphasia. Patient reports that about 10 years ago in [place] she had sudden onset diplopia. She was evaluated by an outreach consultant at that
time who sent her to the hospital for further evaluation. She cannot recall what testing she had done, but reports that she was told she had a stroke (unclear if this was an eye or brain stroke). She reports that she was started on aspirin at that
time and wore prism glasses. At some point the diplopia resolved and she stopped taking aspirin.
Last evening (08/05/25) she reports being at her baseline around 2145 when the [employer] game ended she suddenly had difficulty speaking. She was able to write without any issue and wrote to her to call 911 due to concern of stroke. She took
a full dose aspirin prior to EMS arrival. CT head, CTA head/neck, and CT brain perfusion were obtained and are negative for any acute abnormalities. Symptoms had improved on arrival in the ER and NIHSS was 0. She was not a candidate for TNK/IAT due
to NIHSS 0, no LVO. She notes that about an hour after aphasia onset she developed a posterior headache. Today (08/06/25), patient reports that her speech is still not completely back to baseline, she still notes difficulty getting her words out and
her headache persists. She also report feeling mildly dizzy, she is unable to describe this further. She reports a feeling of anxiety. She denies any vision changes, swallowing difficulty, numbness, weakness, neck/back pain. She had a cervical spine
stimulator placed about one week ago by Dr. Cowan.
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
Surgical History: Spine stimulator placed one week ago, appendectomy, cholecystectomy, hysterectomy
Family History: Father- CVA.
Social History: Denies tobacco, alcohol, and illicit drug use.
Allergies: Ciprofloxacin, levofloxacin.
Home Medications: See below.
Review of Symptoms:
Patient denies any fever, chest pain, shortness of breath, GI or symptoms.
�Per the HPI.�All systems are reviewed negative except above.
Physical Exam:
The patient is afebrile, abdomen is nondistended, breathing is unlabored, skin is warm and dry, no edema.
NIH Stroke Scale:
I performed the NIH stroke scale on the patient on 08/06/25 at 0920. The patient scored 2 points on the NIH stroke scale assessment, which were assigned as follows: See below.
Neurologic Examination:
The patient is awake, alert and oriented to person, place, and year, not month. Next Holiday- Thanksgiving, self-corrected to Halloween. Most recent- Yom Kippur. She is able to follow commands and answer questions appropriately. There is mild
aphasia. No dysarthria. On cranial nerve assessment, pupils are 3 mm bilateral, round and reactive to light and accommodation. Visual schaffer are full. Extraocular movements are intact. Facial sensations are intact and bilaterally symmetrical, there
is no facial asymmetry. Hearing is diminished mildly bilaterally to normal conversation volume. Tongue palate and uvula are midline. Sternocleidomastoid strengths are full bilaterally. Motor strengths are 5/5 bilateral upper and lower extremities on
medical research [place] scale. There is no drift or involuntary movement noted. Deep tendon reflexes are 2+ bilateral upper and lower extremities and Babinski is absent bilaterally. There was no extinction noted on double simultaneous stimulation.
Coordination is mildly ataxic in the RUE with finger to nose.
Lab Results: See below.
Neuro Imaging:
1. CT Head 08/05/25: No acute intracranial abnormality. Additional findings above. A preliminary interpretation was provided by [facility] teleradiology service. The above report agrees with the initial interpretation.
ASPECT score: 10.
2. CTA head/neck 08/05/25: No large vessel occlusions, dissections, or aneurysms appreciated. Mild to moderate mixed atherosclerotic plaque within BOTH carotid bulbs and proximal internal carotid arteries, likely causing greater than 50% luminal
narrowing on the left.
3. CT Perfusion 08/05/25: CBF 0, Tmax 0.
Differentials for the patient's presentation include:
1. Aphasia; etiology is concerning for a small ischemic stroke given persistent symptoms, versus metabolic abnormality.
Patient has the following risk factors for their symptoms: HTN, HLD, NIDDM, age
IV Tenecteplase/IAT candidacy: She was not a candidate for TNK/IAT due to NIHSS 0, no LVO.
Recommendations:
-Start DAPT with aspirin 81mg and clopidogrel 75mg daily for 21 days. After 21 days, stop clopidogrel and continue aspirin 81mg daily only, indefinitely.
-Permissive hypertension SBP<220, DBP<120 until 2200 tonight, then goal normotension.
-MRI brain noncontrast pending.
-LDL goal <70. LDL is 102. Increase home rosuvastatin from 10mg to 20mg daily.
-Goal normoglycemia, hbA1c is 6.9.
-Checking blood work for metabolic abnormalities.
-NIHSS and neurological checks per unit guidelines.
-Provide patient/family with a stroke education packet.
-PT/OT/ST evaluations.
-DVT prophylaxis.
Discussed patient care with: Dr. Dye, the patient
Vital Signs and Labs
-
Vital Signs and Labs:
Vital Signs
Temp Pulse Resp BP Pulse Ox
98 F 73 20 150/69 94
08/06/25 06:45 08/06/25 08:24 08/06/25 06:45 08/06/25 08:24 08/06/25 06:45
Lab Results
08/06/25 05:58
08/06/25 05:58
PT 13.8 Sec (11.4-14.6) 08/05/25 23:34
INR 1.01 08/05/25 23:34
APTT 33.7 Sec (23.4-35.0) 08/05/25 23:34
Sodium 137 mmol/L (135-145) 08/06/25 05:58
Potassium 4.4 mmol/L (3.5-5.1) 08/06/25 05:58
BUN 12 mg/dl (7-17) 08/06/25 05:58
Glucose 142 mg/dl (70-99) H 08/06/25 05:58
Calcium 9.3 mg/dl (8.4-10.2) 08/06/25 05:58
LDL Cholesterol, Calc 102 mg/dl 08/06/25 05:58
Medications
-
Active Medications
Generic Name Dose Route Start Last Admin
Trade Name Freq PRN Reason Stop Dose Admin
Acetaminophen 650 mg 08/06/25 02:52
Acetaminophen 650 Mg Rectal Suppository RECTAL 09/03/25 02:51
Q4HPRN PRN
CARLSON, mild pain, or temp >100.4F
Acetaminophen 650 mg 08/06/25 02:52
Acetaminophen 325 Mg Tablet PO 09/03/25 02:51
Q4HPRN PRN
CARLSON, mild pain, or temp >100.4F
Aspirin 81 mg 08/06/25 08:00 08/06/25 08:24
Aspirin 81 Mg Chewable Tablet PO 09/03/25 07:59 81 mg
DAILY SHANNON Administration
Budesonide 0.5 mg 08/06/25 02:52
Budesonide (Pulmicort Respules) 0.5 Mg/2 Ml INH
R Q6HPRN PRN
sob/wheezing
Protocol
Dextrose 12.5 grams 08/06/25 02:52
Dextrose 50% (0.5 Grams/Ml) 50 Ml Syringe IV 09/03/25 02:51
[id number] PRN
hypoglycemia
Protocol
Duloxetine HCl 60 mg 08/06/25 08:00 08/06/25 09:07
Duloxetine Delayed Release 30 Mg Capsule PO 09/03/25 07:59 Not Given
DAILY SHANNON
Glucagon 1 mg 08/06/25 02:52
Glucagon 1 Mg Vial IM 09/03/25 02:51
PRN PRN
hypoglycemia
Protocol
Insulin Aspart 0 units 08/06/25 07:30 08/06/25 09:07
Insulin Aspart Low Resistance 300 Units/3 Ml Pen.Injctr SC 09/03/25 07:29 Not Given
AC SHANNON
Protocol
Levothyroxine Sodium 88 mcg 08/06/25 06:00 08/06/25 05:53
Levothyroxine 88 Mcg Tablet PO 09/03/25 05:59 88 mcg
DAILY @ 0600 SHANNON Administration
Lorazepam 0.5 mg 08/06/25 02:52 08/06/25 08:24
Lorazepam 0.5 Mg Tablet PO 09/03/25 02:51 0.5 mg
TID PRN Administration
anxiety
Losartan Potassium 50 mg 08/06/25 08:00 08/06/25 08:24
Losartan 50 Mg Tablet PO 09/03/25 07:59 50 mg
DAILY SHANNON Administration
Metoprolol Succinate 25 mg 08/06/25 08:00 08/06/25 08:24
Metoprolol 25 Mg Extended Release Tablet PO 09/03/25 07:59 25 mg
BID SHANNON Administration
Rosuvastatin Calcium 20 mg 08/06/25 22:00
Rosuvastatin (Crestor) 20 Mg Tablet PO 09/03/25 21:59
HS SHANNON
Sodium Chloride 0 flush 08/06/25 03:00
Sodium Chloride 0.9% (Flush) Syringe IV 09/03/25 02:59
PER PROTOCOL SHANNON
Home Medications
�Medication �Instructions �Recorded
cholecalciferol (vitamin D3) 25 25 mcg PO DAILY 04/20/16
mcg (1,000 unit) tablet (Vitamin
D3)
fluticasone propionate 50 1 spray intranasal DAILY 04/20/16
mcg/actuation nasal
spray,suspension
lorazepam 1 mg tablet 1 mg PO TID 04/20/16
metoprolol succinate 25 mg 25 mg PO DAILY #30 tabs 02/28/23
tablet,extended release 24 hr
(Toprol XL)
budesonide 0.5 mg/2 mL suspension 0.5 mg inhalation R Q6HPRN PRN 04/04/24
for nebulization sob/wheezing
duloxetine 30 mg capsule,delayed 30 mg PO DAILY 01/30/24
release
gabapentin 300 mg capsule 300 mg PO BID 01/30/24
guaifenesin 100 mg/5 mL oral liquid 200 mg PO Q4H PRN cough 01/30/24
ibuprofen 200 mg capsule 200 mg PO Q6H PRN mild pain 01/30/24
ipratropium 0.5 mg-albuterol 3 mg 3 ml inhalation R Q4HPRN PRN 01/30/24
(2.5 mg base)/3 mL nebulization sob/wheezing
soln
levothyroxine 88 mcg tablet 88 mcg PO DAILY 01/30/24
losartan 50 mg tablet 50 mg PO DAILY 01/30/24
metformin 500 mg tablet,extended 500 mg PO QPM 01/30/24
release 24 hr
oxycodone 5 mg tablet 5 mg PO Q8H PRN Pain #15 tabs 01/30/24
rosuvastatin 10 mg tablet 10 mg PO HS 01/30/24
NIH Stroke Score
Subsequent NIH Scale
Date of Subsequent NIH Scale: 08/06/25
Time of Subsequent NIH Scale: 09:20
NIH Stroke Score
Level of Consciousness: 0 - Alert
LOC Questions: 0-Answers both correctly
LOC Commands: 0-Performs both correctly
Best Horizontal Gaze: 0-Normal
Visual Schaffer: 0=Normal, no visual loss
Facial Palsy: 0=Normal, symmetrical
Motor - Right Arm: 0=No drift 10 seconds
Motor - Left Arm: 0=No drift 10 seconds
Motor - Right Le-No drift 5 seconds
Motor - Left Le-No drift 5 seconds
Limb Ataxia: 1-Present in one limb
Sensation: 0-Normal
Best Language: 1-Mild aphasia
Dysarthria: 0-Normal
Extinction and Inattention: 0-No abnormality
NIH Total Score:: 2
Modified Merrick (mRS) Score
Modified Sadaf Scale (mRS): No significant disability. Able to carry out usual activities.
Score: 1
Alteplase Contraindication
Inclusion and Exclusion criteria reviewed: Yes
IAT Contraindications: NIHSS < 6

Documented by User: Mario Dye MD 08/06/25 11:36
NIH Stroke Score
NIH Stroke Score
NIH Total Score:: 2
Modified Merrick (mRS) Score
Score: 1
[2025-08-06 09:28] LABS: Glycohemoglobin (HgbA1c) 6.9 % (4.0-5.6)
[2025-08-06 09:44] LABS: TSH 8.07 uIU/ml (0.47-4.68)
--- NOTE | 2025-08-06 10:09 | W.PN.HOSP.TC ---
Today's Communication/Plan
-
see PN
Assessment / Plan
Assessment / Plan
85yo F with asthma, anxiety, hypothyroidism, DM HLD, HTN came with transient episode of expressive aphasia. Still feels little bit confused on the second day after admission. CTA without LVO.
A/P:
#Aphasia, concern for CVA/TIA
No significant signs of encephalopathy, most likely baseline cognitive impairment present
COnt ASA, increase statin as LDL 102
CHeck HgbA1c and TSH
neurochecks
MRI brain
neurologist consult
Telemetry without clinically significant arrhythmia
Echo
#LEukocytosis
CHest XR without acute findings
check UA
Influenza and COVID-19 PCR neg
#Carotid stenosis
less then 50% on R and more then 50% on L, no critical LVO
#Hx of back pain s/p spinal stimulator
#Essential HTN
#Hypothyroidism
#HLD
#Asthma, not in exacerbation
#Neuropathy
#Anxiety
cont home meds
MRI dept to check compatibility of the device with MRI
#AM type 2 with neuropathy
Dm siet, accuchecks, insulin SS
hold metformin
DVT ppx SCDs
DNI, but CPR allowed
I have spent at least 58min reviewing chart, test results, communication with consultants and providing direct patient care
Anticipated Discharge: Within 24 hours
Subjective/Interval History
-
Date of Service: August 06, 2025
Objective Data
-
Labs:
Laboratory Results
08/05/25 08/06/25
23:34 05:58
WBC 14.0 H 15.3 H
Hgb 13.9 14.5
Hct 40.5 42.4
Plt Count 206 220
PT 13.8
INR 1.01
APTT 33.7
Sodium 137 137
Potassium 4.4 4.4
Chloride 102 101
Carbon Dioxide 30 29
BUN 13 12
Creatinine 0.9 0.8
Glucose 145 H 142 H
Calcium 9.3 9.3
Total Bilirubin 0.4
AST 20
ALT 12
Alkaline Phosphatase 62
Vital Signs:
Vital Signs
Temp Pulse Resp BP Pulse Ox
98 F 73 20 150/69 94
08/06/25 06:45 08/06/25 08:24 08/06/25 06:45 08/06/25 08:24 08/06/25 06:45
I&O
08/05/25 08/06/25 08/07/25
06:59 06:59 06:59
Intake Total 200 / 200
Balance 200 / 200
Review of Systems
-
History Source: Patient
All other systems: Reviewed and negative
Physical Exam
-
General: Comfortable
HEENT: Normocephalic
Respiratory: Clear to Auscultation
Cardiac: Regular Rhythm
Neuro: Awake, Oriented, AO x 3 and No Motor Deficits
Psych: Calm and Apparent Dementia
[2025-08-06 10:12] LABS: C-Reactive Protein < 5.00 mg/L (0.0-10.00)
[2025-08-06 10:47] LABS: Ferritin 30.0 ng/ml (11.1-264.0)
[2025-08-06 11:18] LABS: Folate 8.1 ng/ml (2.76-20); Vitamin B12 190 pg/ml (239-931)
--- NOTE | 2025-08-06 11:39 | PTOTSP ---
Speech Therapy Evaluation
Pt seen for bedside swallow evaluation. Pt at risk for aspiration given history of CVA and general weakness.�Pt edentulous and dentures are currently at home. Oral-motor function WFL. Oral phase characterized by adequate acceptance, mastication,
bolus formation, transfers, and clearance. No overt s/sx of aspiration observed.
Pt admitted to ED as stroke alert due to history of CVA and slurred speech. Head CT did not indicate intracranial abnormality. MRI considered, however, pt recently had a spinal cord stimulator implanted, so it may be contraindicated. Pending MRI
decision, pt may benefit from cognitive-communication assessment.
Recommendation:
1. IDDSI 7 Regular solids, IDDSI 0 Thin liquids
2. Medication as best tolerated
3. Standard aspiration precautions�
4. [employer] to follow briefly to ensure diet tolerance and to follow up on MRI results (if it is cleared by MD)
[2025-08-06 11:51] LABS: Urine Character Clear (Clear)
[2025-08-06 11:59] LABS: Urine Squamous Cell 26-30 /LPF (Few)
[2025-08-06 12:00] LABS: Urine Urothelial Cell 16-20 /LPF (FEW)
[2025-08-06 12:01] LABS: Urine Red Blood Cell 0-2 /HPF (0-2); Urine White Cell 0-2 /HPF (0-5)
[2025-08-06] MEDS: PLAVIX 75 MG PO (12:10)
[2025-08-06 13:11] LABS: Glucose - Point of Care 190 mg/dl (70-99)
[2025-08-06] MEDS: NOVOLOG FLEXPEN-LOW RESISTANCE 1 UNITS SC ×2 (13:42→17:18)
[2025-08-06] MEDS: VITAMIN B-12 1000 MCG PO (13:42)
--- NOTE | 2025-08-06 14:17 | CM ---
Addendum entered by Kristine May 08/06/25 15:34:
OBS/REYES form is on chart signed with all questions answered.
Original Note:
Patient seen at bedside with daughter, son and . Patient has 6 children and states that she lives with her in [facility] apartment. Patient has no home VN or DME, that she uses. Patient is her primary
'aide' per daughter. Patient PCP is Dr. Collier and they use [facility] as the pharmacy. Patient has a walker that she does not use. Patient stated that she was going to have MRI and she reviewed OBS/REYES form and signed form placed on chart. CM will
continue to follow for discharge planning needs.
Plan; home with VN vs SNF pending medical treatment plan
[2025-08-06 16:24] LABS: Glucose - Point of Care 172 mg/dl (70-99)
[2025-08-06] MEDS: CRESTOR 20 MG PO (20:11)
[2025-08-06] MEDS: CYMBALTA DELAYED RELEASE 60 MG PO (20:11)
[2025-08-06 21:07] LABS: Glucose - Point of Care 119 mg/dl (70-99)
[2025-08-07] VITALS (9 sets, daily range): BP systolic 123–175; BP diastolic 67–83; PULSE 80; O2SAT 96
[2025-08-07 06:58] LABS: Glucose - Point of Care 150 mg/dl (70-99)
[2025-08-07] MEDS: COZAAR 50 MG PO (07:32)
[2025-08-07] MEDS: VITAMIN B-12 1000 MCG PO (07:32)
[2025-08-07] MEDS: TOPROL XL 25 MG PO ×2 (07:33→19:50)
[2025-08-07] MEDS: LOW STRENGTH ASPIRIN 81 MG PO (07:33)
[2025-08-07] MEDS: PLAVIX 75 MG PO (07:33)
[2025-08-07] MEDS: SYNTHROID 100 MCG PO (07:33)
[2025-08-07] MEDS: NOVOLOG FLEXPEN-LOW RESISTANCE 1 UNITS SC ×2 (07:43→13:50)
--- NOTE | 2025-08-07 10:28 | W.PN.HOSP.TC ---
Today's Communication/Plan
-
Start rocephin
pending MRI
Assessment / Plan
Assessment / Plan
85yo F with asthma, anxiety, hypothyroidism, DM HLD, HTN came with transient episode of expressive aphasia. Still feels little bit confused on the second day after admission. CTA without LVO.
A/P:
#Aphasia, concern for CVA/TIA
No significant signs of encephalopathy, most likely baseline cognitive impairment present
COnt ASA, increase statin as LDL 102
HgbA1c 6.9%
TSH 8.07, increase Synthroid to 100mcg, repeat TFT in 3-4 weeks with PCP
neurochecks
MRI brain
neurologist consult
Telemetry without clinically significant arrhythmia
Echo: Normal left ventricular size, wall thickness and systolic function. No regional wall motion abnormalities are seen, no significant valvular disease, with no evidence of interatrial shunting
#Leukocytosis
#Bacteriuria with fatigue
since patient overall poor historian 2/2 cognitive impairment - will make reasonable sence to treat as simple UTI - Ceftriaxone pending Ucx
Chest XR without acute findings
Influenza and COVID-19 PCR neg
#Carotid stenosis
less then 50% on R and more then 50% on L, no critical LVO
#Hx of back pain s/p spinal stimulator
#Essential HTN
#Hypothyroidism
#HLD
#Asthma, not in exacerbation
#Neuropathy
#Anxiety
cont home meds
MRI dept to check compatibility of the device with MRI
#DM type 2 with neuropathy
Dm siet, accuchecks, insulin SS
hold metformin
DVT ppx SCDs
DNI, but CPR allowed
I have spent at least 51min reviewing chart, test results, communication with consultants, daughter bedside and providing direct patient care
Anticipated Discharge: Within 24 hours
Subjective/Interval History
-
Date of Service: August 07, 2025
Objective Data
-
Vital Signs:
Vital Signs
Temp Pulse Resp BP Pulse Ox
98 F 67 12 123/69 97
08/07/25 07:00 08/07/25 07:32 08/07/25 07:00 08/07/25 07:32 08/07/25 09:30
I&O
08/06/25 08/07/25 08/08/25
06:59 06:59 06:59
Intake Total 200 / 200 780 / 780
Balance 200 / 200 780 / 780
Review of Systems
-
Unable to obtain full review of systems at this time due to: Dementia
History Source: Patient
All other systems: Reviewed and negative
Constitutional: Reports Fatigue
Physical Exam
-
General: No Apparent Distress
HEENT: Normocephalic
Cardiac: Regular Rhythm
GI: Soft, Nontender and Nondistended
Neuro: Awake and Alert
Psych: Calm and Apparent Dementia
[2025-08-07] MEDS: ROCEPHIN 1000 MG IV (11:28)
[2025-08-07] MEDS: STERILE WATER FOR INJECTION 10 ML IV (11:28)
[2025-08-07] MEDS: ATIVAN 0.5 MG PO ×2 (11:33→17:49)
[2025-08-07 11:35] LABS: Glucose - Point of Care 164 mg/dl (70-99)
[2025-08-07 16:32] LABS: Glucose - Point of Care 142 mg/dl (70-99)
[2025-08-07] MEDS: NOVOLOG FLEXPEN-LOW RESISTANCE SC (16:33)
[2025-08-07] MEDS: CYMBALTA DELAYED RELEASE 60 MG PO (19:49)
[2025-08-07] MEDS: CRESTOR 20 MG PO (19:50)
[2025-08-08 03:18] VITALS: BP 133/68
[2025-08-08] MEDS: ATIVAN 0.5 MG PO ×2 (06:01→19:48)
[2025-08-08] MEDS: SYNTHROID 100 MCG PO (06:01)
[2025-08-08 07:00] VITALS: BP 155/70
[2025-08-08] MEDS: NOVOLOG FLEXPEN-LOW RESISTANCE SC ×2 (07:57→17:00)
[2025-08-08] MEDS: PLAVIX 75 MG PO (07:57)
[2025-08-08] MEDS: TOPROL XL 25 MG PO ×2 (07:57→21:38)
[2025-08-08] MEDS: VITAMIN B-12 1000 MCG PO (07:57)
[2025-08-08] MEDS: COZAAR 50 MG PO (07:58)
[2025-08-08] MEDS: LOW STRENGTH ASPIRIN 81 MG PO (07:58)
[2025-08-08 11:11] VITALS: BP 163/81
[2025-08-08] MEDS: CIPRO 500 MG PO ×2 (12:24→19:48)
--- NOTE | 2025-08-08 13:17 | W.PN.HOSP.TC ---
Today's Communication/Plan
-
pedning Ucx
Assessment / Plan
Assessment / Plan
85yo F with asthma, anxiety, hypothyroidism, DM HLD, HTN came with transient episode of expressive aphasia. Still feels little bit confused on the second day after admission. CTA without LVO.MRI brain: Small acute left frontal subcortical white
matter infarct. Tiny acute left superior parietal cortical infarct. Also found possible pseudomonal UTI
A/P:
#Aphasia, concern for CVA/TIA
No significant signs of encephalopathy, most likely baseline cognitive impairment present
COnt ASA, increase statin as LDL 102, Plavix for 21 days
HgbA1c 6.9%
TSH 8.07, increase Synthroid to 100mcg, repeat TFT in 3-4 weeks with PCP
neurochecks
MRI brain: Small acute left frontal subcortical white matter infarct. Tiny acute left superior parietal cortical infarct.
neurologist consult
Telemetry without clinically significant arrhythmia
Echo: Normal left ventricular size, wall thickness and systolic function. No regional wall motion abnormalities are seen, no significant valvular disease, with no evidence of interatrial shunting
#Leukocytosis
#Bacteriuria with fatigue, most liekly UTI
since patient overall poor historian 2/2 cognitive impairment - will make reasonable sense to treat as simple UTI - cipro since pseudomonas in Urine, pending sensitivity. QTc reviewed and not prolonged
Chest XR without acute findings
Influenza and COVID-19 PCR neg
#Carotid stenosis
less then 50% on R and more then 50% on L, no critical LVO
#Hx of back pain s/p spinal stimulator
#Essential HTN
#Hypothyroidism
#HLD
#Asthma, not in exacerbation
#Neuropathy
#Anxiety
cont home meds
MRI dept to check compatibility of the device with MRI
#DM type 2 with neuropathy
Dm siet, accuchecks, insulin SS
hold metformin
DVT ppx SCDs
DNI, but CPR allowed
I have spent at least 51min reviewing chart, test results, communication with consultants, son bedside and providing direct patient care
Anticipated Discharge: Within 24 hours
Subjective/Interval History
-
Date of Service: August 08, 2025
Objective Data
-
Vital Signs:
Vital Signs
Temp Pulse Resp BP Pulse Ox
98.2 F 63 16 163/81 97
08/08/25 11:11 08/08/25 11:11 08/08/25 11:11 08/08/25 11:11 08/08/25 11:11
I&O
08/07/25 08/08/25 08/09/25
06:59 06:59 06:59
Intake Total 780 / 780 600 / 600
Balance 780 / 780 600 / 600
Review of Systems
-
History Source: Patient
All other systems: Reviewed and negative
Physical Exam
-
General: No Apparent Distress
Neuro: Awake, Alert, Oriented and AO x 3
Psych: Calm
[2025-08-08] MEDS: NOVOLOG FLEXPEN-LOW RESISTANCE 2 UNITS SC (13:35)
[2025-08-08 15:00] VITALS: BP 141/75
--- NOTE | 2025-08-08 17:02 | PTCARENOTE ---
Pt AAO x3, FREEDMAN; sl forgetful; OOB to chair/ambulates to BR with assist x1/walker, cheli well. No c/o weakness/dizziness. VSS. Telemetry NSR/sinus james 50's. On room air- pulse ox 96%, no c/o SOB. Abd soft, rounded, cheli PO wel. Voids in BR
without difficulty. Resting in chair at present, no c/o. Family at bedside. Will continue to monitor.
[2025-08-08 19:16] VITALS: BP 151/73
[2025-08-08] MEDS: CYMBALTA DELAYED RELEASE 60 MG PO (21:37)
[2025-08-08] MEDS: CRESTOR 20 MG PO (21:37)
[2025-08-08 23:34] VITALS: BP 140/78
[2025-08-09 02:59] VITALS: BP 117/57
[2025-08-09] MEDS: SYNTHROID 100 MCG PO (06:05)
[2025-08-09 07:30] VITALS: BP 133/78
[2025-08-09] MEDS: CIPRO 500 MG PO (07:51)
[2025-08-09] MEDS: LOW STRENGTH ASPIRIN 81 MG PO (07:51)
[2025-08-09] MEDS: VITAMIN B-12 1000 MCG PO (07:52)
[2025-08-09] MEDS: PLAVIX 75 MG PO (07:52)
[2025-08-09] MEDS: TOPROL XL 25 MG PO (07:54)
[2025-08-09] MEDS: COZAAR 50 MG PO (07:54)
[2025-08-09] MEDS: NOVOLOG FLEXPEN-LOW RESISTANCE SC (07:55)
[2025-08-09 08:53] LABS: Hematocrit 43.0 % (37.0-47.0); Hemoglobin 14.4 g/dL (12.0-16.0); Mean Corp Hgb Conc. 33.5 g/dL (33.0-37.0); Mean Corpuscular Volume 95.1 fL (81.0-99.0); Nucleated Red Blood Cells % 0 %; Platelet Count 262 10^3/uL (130-400); Red Cell Dist. Width 14.2 % (11.5-14.5)
[2025-08-09 09:06] LABS: Glucose - Point of Care 137 mg/dl (70-99)
[2025-08-09 09:07] LABS: Glucose - Point of Care 143 mg/dl (70-99)
[2025-08-09 09:07] LABS: Glucose - Point of Care 143 mg/dl (70-99)
[2025-08-09 09:08] LABS: Glucose - Point of Care 209 mg/dl (70-99)
[2025-08-09 09:08] LABS: Glucose - Point of Care 117 mg/dl (70-99)
[2025-08-09 09:09] LABS: Glucose - Point of Care 119 mg/dl (70-99)
[2025-08-09 09:09] LABS: Glucose - Point of Care 138 mg/dl (70-99)
--- NOTE | 2025-08-09 09:21 | W.PN.HOSP.TC ---
Today's Communication/Plan
-
dc
Assessment / Plan
Assessment / Plan
85yo F with asthma, anxiety, hypothyroidism, DM HLD, HTN came with transient episode of expressive aphasia. Still feels little bit confused on the second day after admission. CTA without LVO.MRI brain: Small acute left frontal subcortical white
matter infarct. Tiny acute left superior parietal cortical infarct. Also found possible pseudomonal UTI, however no dysuria symptoms. With leukocytosis reasonable to treat with 3 days cipro. TFT to repeat in 2-3 weeks with PCP. Recommended
outpatient [facility] test. Discussed in details with daughter bedside. Medically stable for d/c home
A/P:
#Aphasia, concern for CVA/TIA
No significant signs of encephalopathy, most likely baseline cognitive impairment present
COnt ASA, increase statin as LDL 102, Plavix for 21 days
HgbA1c 6.9%
TSH 8.07, increase Synthroid to 100mcg, repeat TFT in 3-4 weeks with PCP
neurochecks
MRI brain: Small acute left frontal subcortical white matter infarct. Tiny acute left superior parietal cortical infarct.
neurologist consult
Telemetry without clinically significant arrhythmia
Echo: Normal left ventricular size, wall thickness and systolic function. No regional wall motion abnormalities are seen, no significant valvular disease, with no evidence of interatrial shunting
#Leukocytosis
#Bacteriuria with fatigue, most liekly UTI
since patient overall poor historian 2/2 cognitive impairment - will make reasonable sense to treat as simple UTI - cipro since pseudomonas in Urine, pending sensitivity. QTc reviewed and not prolonged
Chest XR without acute findings
Influenza and COVID-19 PCR neg
#Carotid stenosis
less then 50% on R and more then 50% on L, no critical LVO
#B12 deficiency
replete
#Hx of back pain s/p spinal stimulator
#Essential HTN
#Hypothyroidism
#HLD
#Asthma, not in exacerbation
#Neuropathy
#Anxiety
Synthroid increased
cont home meds
MRI dept to check compatibility of the device with MRI
#DM type 2 with neuropathy
Dm siet, accuchecks, insulin SS
hold metformin
DVT ppx SCDs
DNI, but CPR allowed
I have spent at least 51min reviewing chart, test results, communication with consultants, son bedside and providing direct patient care
Anticipated Discharge: Today
Subjective/Interval History
-
Date of Service: August 09, 2025
Objective Data
-
Labs:
Laboratory Results
08/09/25
08:29
WBC 13.6 H
Hgb 14.4
Hct 43.0
Plt Count 262
Vital Signs:
Vital Signs
Temp Pulse Resp BP Pulse Ox
98.1 F 73 18 133/68 94
08/09/25 07:30 08/09/25 07:54 08/09/25 07:30 08/09/25 07:54 08/09/25 07:30
I&O
08/08/25 08/09/25 08/10/25
06:59 06:59 06:59
Intake Total 600 / 600 920 / 920
Balance 600 / 600 920 / 920
Review of Systems
-
History Source: Patient
All other systems: Reviewed and negative
Physical Exam
-
General: No Apparent Distress
HEENT: Normocephalic
Cardiac: Regular Rhythm
Neuro: Awake, Alert, Oriented and AO x 3
Psych: Calm
--- NOTE | 2025-08-09 09:25 | W.DCSUMMARY ---
Discharge Summary
Discharge Data
Date of Admission: 08/07/25
Date of Discharge: 08/09/25
-
Pending Results: No
Hospital Course
85yo F with asthma, anxiety, hypothyroidism, DM HLD, HTN came with transient episode of expressive aphasia. Still feels little bit confused on the second day after admission. CTA without LVO.MRI brain: Small acute left frontal subcortical white
matter infarct. Tiny acute left superior parietal cortical infarct. Also found possible pseudomonal UTI, however no dysuria symptoms. With leukocytosis reasonable to treat with 3 days cipro. TFT to repeat in 2-3 weeks with PCP. Recommended
outpatient Ver[facility]Now test. Discussed in details with daughter bedside. Medically stable for d/c home
I have spent at least 51min reviewing chart, test results, communication with consultants, son bedside and providing direct patient care
Patient was managed for:
#Aphasia, concern for CVA/TIA
#Leukocytosis
#Bacteriuria with fatigue, most liekly UTI
#Carotid stenosis
#B12 deficiency
#Hx of back pain s/p spinal stimulator
#Essential HTN
#Hypothyroidism
#HLD
#Asthma, not in exacerbation
#Neuropathy
#Anxiety
#DM type 2 with neuropathy
Discharge Plan
-
Patient Disposition: Home with Home Care
Discharge Diagnosis/Procedures: CVA
Diet: Low Cholesterol
Activity: As tolerated
Blood Work: thyroid function test in 2-3 weeks with family doctor
Referrals:
Onel Collier MD [Family Provider, Internal Medicine] - in one week
Referral Note: Schedule Ver[facility]Now test for aspirin activity on platelets
Prescriptions:
New
clopidogrel 75 mg Tablet
75 mg PO DAILY Qty: 19 0RF
ciprofloxacin HCl 500 mg Tablet
500 mg PO BID Qty: 3 0RF
levothyroxine 100 mcg Tablet
100 mcg PO DAILY @ 0600 Qty: 30 0RF
cyanocobalamin (vitamin B-12) [Vitamin B-12] 500 mcg Tablet
1,000 mcg PO DAILY Qty: 30 0RF
rosuvastatin 20 mg Tablet
20 mg PO HS Qty: 30 0RF
Continued
lorazepam 1 MG tablet
1 mg PO TID
Patient Comments:
01/30/2024: last filled 12/23/23, 90 tabs for 30 days from [facility]
fluticasone propionate 1 SPRAY spray,suspension
1 spray intranasal DAILY
cholecalciferol (vitamin D3) [Vitamin D3] 25 mcg (1,000 unit) Tablet
25 mcg PO DAILY
metoprolol succinate [Toprol XL] 25 mg tablet extended release 24 hr
25 mg PO DAILY Qty: 30 3RF
losartan 50 mg tablet
50 mg PO DAILY
ipratropium-albuterol 0.5 mg-3 mg(2.5 mg base)/3 mL solution for nebulization
3 ml INHALATION R Q4HPRN PRN (Reason: sob/wheezing)
guaifenesin 100 mg/5 mL Liquid
200 mg PO Q4H PRN (Reason: cough)
budesonide 0.5 mg/2 mL suspension for nebulization
0.5 mg inhalation R Q6HPRN PRN (Reason: sob/wheezing)
metformin 500 mg tablet extended release 24 hr
500 mg PO QPM
duloxetine 30 mg capsule,delayed release(DR/EC)
30 mg PO DAILY
Discontinued
levothyroxine 88 mcg tablet
88 mcg PO DAILY
rosuvastatin 10 mg tablet
10 mg PO HS
Discharge Orders:
Discharge Patient (As Directed); Ordered 08/09/25
Ordered By: Kamari Oh
Discharge Date and Time
Print Language: CHADIAN
[2025-08-09] MEDS: ATIVAN 0.5 MG PO (09:57)
[2025-08-09] MEDS: TYLENOL 650 MG PO (10:24)
--- NOTE | 2025-08-09 10:28 | PTOTSP ---
Speech Therapy Language Assessment
Expressive and receptive language skills are deemed within functional limits. Occasional hesitation with complex processing, naming and attention to all details during multi-unit auditory and reading comprehension tasks. Spoke with patient and
daughter who both report patient is nearly back to baseline. Discussed high level language and cognitive deficits that might not be evident until getting back into everyday activities. Explained difficulty assessment of high level skills in acute
setting with multiple distractions and interruptions. Answered all questions.
Recommend
1. Comprehensive assessment of language and cognitive communication skills in next level of care.
2. Continue regular solids and thin liquids.
3. No further skilled care needed in acute setting.
[2025-08-09 11:11] VITALS: BP 141/73
[2025-08-09 12:47] LABS: Glucose - Point of Care 172 mg/dl (70-99)
[2025-08-09] MEDS: NOVOLOG FLEXPEN-LOW RESISTANCE 1 UNITS SC (13:08)
[2025-08-09 15:01] VITALS: BP 142/73
--- NOTE | 2025-08-09 15:17 | VNURNOTE ---
Home Health Liaison met with patient, spouse and daughter at bedside to discuss [facility] nurse/therapy, visits, schedule and homebound status. Patient is agreeable and understands that visits at home will be 2-3 x per week to assess and teach medical
management. Patient is aware that [facility] will contact them for start of care in 1-2 days after discharge from . Provided contact number for [facility].
[facility] referral completed in [facility].
[2025-08-09 15:22] VITALS: BP 142/73
== END 2025-08-09 15:58 | disposition home health service (06) | DRG 65 ==
LOC: 4 EAST ACU 14:40
PROVIDERS: Emergency Medicine; ADMITTING PHYSICIAN Internal Medicine; ATTENDING PHYSICIAN Internal Medicine; CONSULT PHYSICIAN Psychiatry & Neurology Neurology; EMERGENCY PHYSICIAN Student in an Organized Health Care Education/Training Program; FAMILY PHYSICIAN Internal Medicine Geriatric Medicine
DX: I63.9 Cerebral infarction, unspecified (principal); G81.91 Hemiplegia, unspecified affecting right dominant side; J44.0 Chronic obstructive pulmonary disease with (acute) lower respiratory infection; N39.0 Urinary tract infection, site not specified; R47.01 Aphasia; E03.9 Hypothyroidism, unspecified; E11.40 Type 2 diabetes mellitus with diabetic neuropathy, unspecified; E78.00 Pure hypercholesterolemia, unspecified; F41.9 Anxiety disorder, unspecified; G89.29 Other chronic pain; D72.829 Elevated white blood cell count, unspecified; K21.9 Gastro-esophageal reflux disease without esophagitis; E53.8 Deficiency of other specified B group vitamins; M79.7 Fibromyalgia; M85.80 Other specified disorders of bone density and structure, unspecified site; I10 Essential (primary) hypertension; Z66 Do not resuscitate; Z86.73 Personal history of transient ischemic attack (TIA), and cerebral infarction without residual deficits; Z90.710 Acquired absence of both cervix and uterus; Z98.1 Arthrodesis status; Z90.49 Acquired absence of other specified parts of digestive tract; Z82.49 Family history of ischemic heart disease and other diseases of the circulatory system; Z86.0100 Personal history of colon polyps, unspecified; Z87.19 Personal history of other diseases of the digestive system; Z79.82 Long term (current) use of aspirin; Z79.899 Other long term (current) drug therapy; Z79.02 Long term (current) use of antithrombotics/antiplatelets; Z79.890 Hormone replacement therapy; Z88.1 Allergy status to other antibiotic agents; Z79.84 Long term (current) use of oral hypoglycemic drugs; Z82.3 Family history of stroke; Z11.52 Encounter for screening for COVID-19
CPT/HCPCS: 0042T; 70450; 70496; 70498; 70551; 71046; 72070; 72100; 80048; 80053; 80061; 81003; 81015; 82607; 82728; 82746; 82962; 83036; 84439; 84443; 85025; 85027; 85610; 85652; 85730; 86140; 87070; 87077; 87086; 87186; 87502; 87811; 92523; 92610; 93005; 93306; 97116; 97163; 97166; 97530; 97535; 99285; Q9967

== ENCOUNTER → 2025-08-23 09:28 | Outpatient (REF) | payer MEDICARE, OTHER, SELFPAY ==
[2025-08-23 10:50] LABS: ALT (SGPT) 15 U/L (0-35); AST (SGOT) 25 U/L (14-36); Albumin 4.7 g/dl (3.5-5.0); Alkaline Phosphatase 68 U/L (38-126); Total Protein 7.9 g/dl (6.3-8.2)
[2025-08-23 11:24] LABS: Urine Character Clear (Clear)
[2025-08-23 11:26] LABS: VerifyNow PRU 129 PRU (180-376)
[2025-08-23 11:39] LABS: Urine Squamous Cell >30 /LPF (Few)
== END ==
LOC: REG 09:28
PROVIDERS: ATTENDING PHYSICIAN Internal Medicine Geriatric Medicine
DX: G45.9 Transient cerebral ischemic attack, unspecified (principal); Z79.01 Long term (current) use of anticoagulants; R35.0 Frequency of micturition; E03.9 Hypothyroidism, unspecified
CPT/HCPCS: 36415; 80076; 81003; 81015; 84443; 85576

== ENCOUNTER → 2025-10-08 10:43 | Outpatient (REF) | payer MEDICARE, OTHER, SELFPAY ==
[2025-10-08 11:58] LABS: Hematocrit 43.0 % (37.0-47.0); Hemoglobin 14.0 g/dL (12.0-16.0); Mean Corp Hgb Conc. 32.6 g/dL (33.0-37.0); Mean Corpuscular Volume 94.5 fL (81.0-99.0); Nucleated Red Blood Cells % 0 %; Platelet Count 261 10^3/uL (130-400); Red Cell Dist. Width 13.8 % (11.5-14.5)
[2025-10-08 12:10] LABS: Glycohemoglobin (HgbA1c) 7.1 % (4.0-5.9)
[2025-10-08 12:38] LABS: AST (SGOT) 24 U/L (14-36); Albumin 4.3 g/dl (3.5-5.0); Carbon Dioxide 30 mmol/L (22-30); eGFR > 60.00
[2025-10-08 13:06] LABS: ALT (SGPT) 16 U/L (0-35); Alkaline Phosphatase 66 U/L (38-126); Blood Urea Nitrogen 17 mg/dl (7-17); Calcium 10.2 mg/dl (8.4-10.2); Chloride 100 mmol/L (98-107); Glucose 204 mg/dl (70-99); Potassium 5.3 mmol/L (3.5-5.1); Sodium 136 mmol/L (135-145); Total Protein 7.3 g/dl (6.3-8.2)
== END ==
LOC: REG 10:43
PROVIDERS: ATTENDING PHYSICIAN Internal Medicine Geriatric Medicine
DX: Z09 Encounter for follow-up examination after completed treatment for conditions other than malignant neoplasm (principal); E78.2 Mixed hyperlipidemia; I10 Essential (primary) hypertension; E11.40 Type 2 diabetes mellitus with diabetic neuropathy, unspecified; E03.9 Hypothyroidism, unspecified; J42 Unspecified chronic bronchitis; F41.9 Anxiety disorder, unspecified; E55.9 Vitamin D deficiency, unspecified; Z91.81 History of falling; M16.11 Unilateral primary osteoarthritis, right hip; Z13.89 Encounter for screening for other disorder
CPT/HCPCS: 36415; 80053; 83036; 84100; 85025